=== PATIENT | female | born 1935 | race Caucasian/White ===

== ENCOUNTER 2018-12-15 17:31 | Inpatient (IN) | payer MEDICARE, OTHER ==
[~2018-12-15] VITALS: Ht 162.6 cm; Wt 98.3 kg
[~2018-12-15 17:31] MED LIST: ALBU90OI; ALBU90OI INH; AMLO5 PO; CHOL10002; DULO30 PO; FISH1000; GLUCOSAMINE CH1 EAC3 PO; HYDACE10B PO; HYDCHL50 PO; POTA10T PO
[2018-12-15] MEDS ORDERED: COLOSTRUM500 MG PO (18:01)
[2018-12-15] MEDS ORDERED: ASPI325 PO (18:02)
[2018-12-15] MEDS ORDERED: Coq-10100 MG PO (18:02)
[2018-12-15] MEDS ORDERED: 24HOUR ALLERGY10 MG PO (18:04)
[2018-12-15] MEDS ORDERED: IBUP600 PO (18:04)
[2018-12-15] MEDS ORDERED: MERIBIN5 MG PO (18:05)
[2018-12-15] MEDS ORDERED: Hair, Skin & N1 EACH (18:05)
[2018-12-15 18:09] LABS: BASOPHILS ABSOLUTE AUTO 0.09 K/mm3 (0.00-0.23); BASOPHILS PERCENT AUTO 1 % (0-2); EOSINOPHILS ABSOLUTE AUTO 0.09 K/mm3 (0.00-0.68); EOSINOPHILS PERCENT AUTO 1 % (0-6); Hematocrit 47.8 % (33.0-51.0); Hemoglobin 15.3 g/dL (11.5-16.0); IMMATURE GRAN ABSOLUTE AUTO 0.04 K/mm3 (0.00-0.10); IMMATURE GRAN PERCENT AUTO 0 % (0-1); LYMPHOCYTES ABSOLUTE AUTO 1.22 K/mm3 (0.84-5.20); LYMPHOCYTES PERCENT AUTO 13 % (21-46); MONOCYTES ABSOLUTE AUTO 0.35 K/mm3 (0.16-1.47); MONOCYTES PERCENT AUTO 4 % (4-13); Mean Corpuscular HGB 32.7 pg (26.0-34.0); Mean Corpuscular Volume 102 fL (80-100); NEUTROPHILS ABSOLUTE AUTO 7.97 K/mm3 (1.96-9.15); NEUTROPHILS PERCENT AUTO 82 % (41-73); Platelet Count 238 K/mm3 (150-400); RDW Coefficient Variation 14.3 % (11.7-14.2); RDW Standard Deviation 53.4 fL (35.1-46.3); Red Blood Cell Count 4.68 M/mm3 (3.80-5.20); White Blood Cell Count 9.76 K/mm3 (4.00-11.30)
[2018-12-15 18:26] LABS: Albumin, Blood 3.3 g/dL (3.4-5.0); Albumin/Globulin Ratio 0.9 (0.8-1.8); Bilirubin, Total 0.5 mg/dL (0.1-1.0); Bun/Creatinine Ratio 19.6 (12.0-20.0); Calcium, Blood 8.6 mg/dL (8.5-10.1); Creatinine, Blood 1.07 mg/dL (0.40-1.00); Globulin, Blood 3.7 g/dL (2.2-4.0); Potassium, Blood 3.8 mmol/L (3.5-5.5); Troponin I 0.086 ng/mL (0.000-0.040)
[2018-12-15 20:15] LABS: International Normalized Ratio 1.02; Prothrombin Time Results 10.8 Sec (9.7-11.5)
[2018-12-15] MEDS ORDERED: VITAMIN B122500 MCG PO (20:50)
[2018-12-15] MEDS ORDERED: NAPR500 PO (20:51)
[2018-12-15] MEDS ORDERED: [UNRECOGNIZED DRUG - OTHER] PO (20:52)
[2018-12-15] MEDS ORDERED: Women's Daily1 EACH PO (20:52)
--- NOTE | 2018-12-15 22:30 | NUR ---
ADMIT PT ARRIVES VIA STRETCHER FROM ER ON 6LO VIA OXYMIZER. PT IS A&O X 3 AND REPORTS SHE IS FEELING MUCH BETTER COMPARED TO ARRIVAL, DENIES CHEST PAIN, DOES REPORT SOME LEFT CALF PAIN FOR THE LAST FEW WEEKS. PT IS SPEAKING FULL SENTENCES AND OCCASIONAL PURSED LIP BREATHING NOTED WITH ACTIVITY; PT DOES DESATURATE TO LOW 80'S WITH NORMAL SPEAKING ON OXYMIZER AT 15L. RT CALLED AND CHANGED OVER TO HFNC WITH HUMIDITY AT 15L TO MAINTAIN O2 SATS OF 92% OR GREATER PER ORDER. BP STABLE, ECG SHOWS SR/SA W/ FREQUENT PAC'S AND PVC'S. HEPARIN GTT INITIATED IN THE ER AT 15UNITS/KG/HR AT 23.1ML/HR FOR WT OF 71KG.
--- NOTE | 2018-12-16 02:21 | NUR ---
UPDATE PT REQUESTING TO USE BSC.O2 SATS CURRENTLY 92%. PT EDUCATED ON POTENTIAL OUTCOMES WITH SUSTAINED LOW O2 SATS BUT REMAINS INSISTENT ON BSC USE. PT UP TO COMMODE, O2 SATS TO 88% WITH MINIMAL EXERTION AND MAINTAINED AT 88% WHILE UP, PT STILL ABLE TO SPEAK FULL SENTENCES AND DENIES INCREASED WOB. ONCE RETURNED TO BED, O2 SATS DROPPED FOR A SHORT TIME TO 76% AND RETURNED TO 90% AFTER 10 MINUTE RECOVERY TIME.
--- NOTE | 2018-12-16 04:33 | NUR ---
UPDATE PT SLEEPING AND MOUTH BREATHING. O2 SATS MAINTAINING AT 88%. PT SWITCHED BACK TO NRB AT 15L/MIN. O2 SATS NOW 90-92%. DISCUSSED WITH PT WHO AGREES TO TRY. PRIOR TO GOING TO SLEEP, PT WAS ABLE TO MAINTAIN O2 SATS AT 90%. PLAN ON ASKING FOR PULMONARY CONSULT.
[2018-12-16 05:11] LABS: BASOPHILS ABSOLUTE AUTO 0.09 K/mm3 (0.00-0.23); BASOPHILS PERCENT AUTO 1 % (0-2); EOSINOPHILS ABSOLUTE AUTO 0.11 K/mm3 (0.00-0.68); EOSINOPHILS PERCENT AUTO 1 % (0-6); Hemoglobin 14.3 g/dL (11.5-16.0); IMMATURE GRAN ABSOLUTE AUTO 0.03 K/mm3 (0.00-0.10); IMMATURE GRAN PERCENT AUTO 0 % (0-1); LYMPHOCYTES ABSOLUTE AUTO 2.33 K/mm3 (0.84-5.20); LYMPHOCYTES PERCENT AUTO 24 % (21-46); MONOCYTES ABSOLUTE AUTO 0.65 K/mm3 (0.16-1.47); MONOCYTES PERCENT AUTO 7 % (4-13); Mean Corpuscular HGB 32.7 pg (26.0-34.0); Mean Corpuscular HGB Conc 32.5 g/dL (31.5-36.5); Mean Corpuscular Volume 101 fL (80-100); Mean Platelet Volume 10.2 fL (9.1-12.4); NEUTROPHILS ABSOLUTE AUTO 6.33 K/mm3 (1.96-9.15); NEUTROPHILS PERCENT AUTO 66 % (41-73); Platelet Count 218 K/mm3 (150-400); RDW Coefficient Variation 14.1 % (11.7-14.2); RDW Standard Deviation 52.1 fL (35.1-46.3); Red Blood Cell Count 4.37 M/mm3 (3.80-5.20); White Blood Cell Count 9.54 K/mm3 (4.00-11.30)
[2018-12-16 05:42] LABS: Albumin, Blood 3.1 g/dL (3.4-5.0); Albumin/Globulin Ratio 0.9 (0.8-1.8); Bilirubin, Total 0.7 mg/dL (0.1-1.0); Bun/Creatinine Ratio 17.4 (12.0-20.0); Calcium, Blood 8.8 mg/dL (8.5-10.1); Creatinine, Blood 1.09 mg/dL (0.40-1.00); Globulin, Blood 3.3 g/dL (2.2-4.0); Potassium, Blood 4.1 mmol/L (3.5-5.5); Total Protein, Blood 6.4 g/dL (6.4-8.2)
--- NOTE | 2018-12-16 06:19 | NUR ---
SHIFT SUMMARY PT REMAINS A&O, REQUIRING HIGH FLOW O2 AT 15L/NRB. PT ABLE TO MAINTAIN O2 SATS 90 OR GREATER WITH NRB BUT ONLY AT REST. WITH ANY ACTIVITY, O2 SATS RANGE FROM 70-80%. PT TOLERATING LOW O2 SATS WHEN UP TO BSC AND REPORTS SHE ONLY FEELS SLIGHTLY SHORT OF BREATH AND SHOWS NO EVIDENCE OF INCREASED WORK OF BREATHING OR ACCESSORY MUSCLE USE. CALL AT 0530 TO UPDATE PHARMACY FOR MOST RECENT PTT, NO DOSE ADJUST OF THIS WRITING AND HOLD/ACKNOWLEDGE PLACED ON HEPARIN; REMAINS AT 15UNITS/KG/HR. BP STALBE, ECG REMAINS SR/SA WITH PAC'S AND PVS'S. O2 SATS AT REST >90%.
--- NOTE | 2018-12-16 07:50 | NUR ---
ASSUMED CARE: REPORT RECEIVED FROM DENISSE Charles RN. ASSUMED CARE OF THIS PT AT APPROX 0700. UPON ASSESSMENT, PT IS RESTING COMFORTABLY & DENIES PAIN. STS SOB IS "GETTING BETTER," PT CURRENTLY ON 15L NRB TO MAINTAIN O2 SATS APPROX 90%. TUMBLERS SUPERVISOR IN ROOM TO COMPLETE BLE & LUE ULTRASOUND. WILL CONTINUE TO MONITOR & UPDATE NEEDED.
--- NOTE | 2018-12-16 09:13 | NUR ---
DR. DAVIS: PROVIDER IN UNIT, DISCUSSED POC PRIOR TO HIM SEEING PT. BECAUSE THE PT IS HEMODYNAMICALLY STABLE AT THIS TIME, CONTINUED USE OF HEPARIN & ALLOWING THE PT TIME TO RECOVER IS BEST POC. CONCERN FOR PROPER NUTRITION PT IS REQUIRING HIGH AMNTS OF O2, WILL START CLEAR LIQUID DIET PER PROVIDER & CONTINUE TOLERATED BY PT. ALSO OKAY TO PLACE BENSON IF PT CONTINUES TO DESAT WHEN GETTING TO BSC. PROVIDER IN ROOM TO SEE PT, THIS PLAN IS DISCUSSED W/ THE PT & PT's VISITOR AT BEDSIDE WHO VERBALIZE UNDERSTANDING.
--- NOTE | 2018-12-16 15:58 | NUR ---
Patient was lying in bed and alert when I entered patient's room. I introduced myself and explained what what department I was from and patient invited me to have a seat. I established therapeutic alliance, conducted a informal spiritual needs assessment and explored patient's belief system. Patient expressed some fears about her current medical issues and the fact that her only family member living in town is moving away this weekend. I reinforced patient's helpful attitudes and practices, offered emotional support and companionship, provided pastoral disability counselor and provided prayer. Patient responded well to all interventions and showed signs of restored leia and reduced stress. Patient voiced her gratitude for the visit.
--- NOTE | 2018-12-16 18:15 | NUR ---
SHIFT SUMMARY: PT REMAINS A&O, PLEASANT & COOPERATIVE W/ CARE. FAMILY HAS BEEN IN ROOM INTERMITTENTLY T/O THIS SHIFT & THEY ARE SUPPORTIVE W/ CARE. THE PT HAS TOLERATED A SBA TO [facility] [place] NEEDING TO VOID. DURING THIS TIME HER O2 SATS HAVE DROPPED LOW 79%. SHE RECOVERS WITHIN APPROX 5 MINUTES OF REST. LS REMAIN DIM IN BASES, PT TOLERATING 15L HI-FLOW NC T/O SHIFT W/ O2 SATS 90% ON AVG. SA W/ PACs & PVCs NOTED ON MONITOR, HR VARIABLE BETWEEN 50-80 BPM. PT HAS C/O NAUSEA x1, MEDS PER EMAR. SHE HAS TOLERATED MIN AMNTS OF PO INTAKE SINCE THAT TIME. SHE VOIDS W/O DIFFICULTY, BUT DID HAVE C/O "BURNING" W/ URINATION THIS EVENING. NO UA HAS BEEN COMPLETED SINCE ADMIT. HEPARIN CONTINUES INFUSING PER PHARMACY MANAGEMENT. WILL CONTINUE TO MONITOR & REPORT OFF TO ONCOMING RN.
[2018-12-16 22:24] LABS: Source, Urine Clean Catch
[2018-12-16 22:40] LABS: Appearance, Urine Cloudy (Clear); Bilirubin, Urine Neg (Neg); Blood, Urine 1+ (Neg); Color, Urine Yellow (P-Yellow); Glucose Qualitative, Urine Neg (Neg); Ketones, Urine Neg (Neg); Leukocyte Esterase, Urine 3+ (Neg); Nitrite, Urine Neg (Neg); Protein, Urine 2+ (Neg); Specific Gravity, Urine 1.015 (1.003-1.022); Urobilinogen, Urine 1+ (Normal); White Blood Cells, Urine TNTC /hpf (0-5); pH, Urine 6.5 (5.0-8.0)
[2018-12-16 22:41] LABS: Bacteria Many /hpf; Red Blood Cells, Urine Rare /hpf (0-2); Squamous Epithelial Cells Few /hpf (Few)
--- NOTE | 2018-12-16 23:08 | NUR ---
PHARMACY aPTT: SPOKE WITH RACHEL IN [employer], STATED TO KEEP HEPARIN RATE THE SAME (18u/26.5 mL/hr).
--- NOTE | 2018-12-17 02:37 | NUR ---
PT RESTING QUIETLY. PT SNORING. VSS
--- NOTE | 2018-12-17 05:06 | NUR ---
PROGRESSING PROLONGING Q-T. PT WITH BRADYCARDIA IN THE 40'S BRIEFLY (SEE RHYTHM STRIP). INHALATION THERAPIST INFORMED.
--- NOTE | 2018-12-17 08:38 | NUR ---
ASSUMED CARE: REPORT RECEIVED FROM CECY Alvarenga RN. ASSUMED CARE OF THIS PT AT APPROX 0700. ON ASSESSMENT, THE PT IS RESTING QUIETLY. SHE AWAKENS EASILY TO VERBAL STIMULI & DENIES PAIN THIS MORNING. SHE STS THAT SHE IS "STILL VERY SLEEPY" & WOULD LIKE TO REST AWHILE LONGER BEFORE ATTEMPTING TO EAT BREAKFAST. O2 SATS REMAIN > 90% ON 15L HI-FLOW NC, PT STS FEELING SOB IS IMPROVED. WILL CONTINUE TO MONITOR & UPDATE NEEDED.
--- NOTE | 2018-12-17 08:50 | NUR ---
DR. DAVIS: PROVIDER IN ROOM TO SEE PT, UPDATED ON PT's STATUS T/O RUG CLEANER HELPER & THIS MORNING. HE STS OKAY TO ADVANCE DIET TOLERATED & DISCUSSES POC W/ PT. CONTINUE SUPPORTIVE CARE W/ HEPARIN & O2, TITRATE O2 DOWN SHY W/ GOAL OF SATS 92-95% & HEPARIN MANAGEMENT PER PHARMACY. WILL CONTINUE TO MONITOR & UPDATE NEEDED.
--- NOTE | 2018-12-17 19:29 | NUR ---
SHIFT SUMMARY: PT REMAINS A&O, PLEASANT & COOPERATIVE W/ CARE. SHE REPORTS THAT SOB IS IMPROVING & O2 HAS BEEN TITRATED DOWN TO 8L HI-FLOW NC W/ O2 SATS > 92%. SR W/ OCCASIONAL PACs & PVCs, AVG HR 80s. BT x4, NAUSEA x1 THIS SHIFT W/ MEDS PER EMAR. PT VOIDS W/O DIFFICULTY, SBA TO BSC. HEPARIN CONTINUES PER PHARMACY MANAGEMENT. WILL CONTINUE TO MONITOR & REPORT OFF OT ONCOMING RN.
--- NOTE | 2018-12-17 21:50 | NUR ---
ASSUMED CARE OF PT FROM SUSANNE SORTO. PT PRESENTS IN BED. ALERT AND ORIENTED. PLEASANT AND COOPERATIVE WITH CARE AND ASSESSMENT. NO APPARENT DISTRESS NOTED. PT DOES STATE THAT SHE HAS MILD PAIN IN RIGHT LOWER ABDOMEN ATTRIBUTED TO GAS. PT HAS HAD BOWEL MOVEMENT THIS DAY. PT MAINTAINS > 90 PERCENT SATURATIONS WITH SUPPLEMENTAL OXYGEN THERAPY. WILL REVIEW CHART AND PLAN OF CARE FOR THIS PT.
--- NOTE | 2018-12-18 01:00 | NUR ---
PT HAS BEEN ABLE TO GET UP TO BEDSIDE COMMODE SEVERAL TIMES THIS SHIFT TO VOID. HAS SMALL BM THIS NIGHT. PT CONTINUES ON 8 LITERS OXYGEN PER NASAL CANNULA. WILL CONTINUE TO MONITOR.
[2018-12-18 05:30] LABS: BASOPHILS ABSOLUTE AUTO 0.05 K/mm3 (0.00-0.23); BASOPHILS PERCENT AUTO 0 % (0-2); EOSINOPHILS ABSOLUTE AUTO 0.08 K/mm3 (0.00-0.68); EOSINOPHILS PERCENT AUTO 1 % (0-6); Hematocrit 45.4 % (33.0-51.0); Hemoglobin 14.4 g/dL (11.5-16.0); IMMATURE GRAN ABSOLUTE AUTO 0.07 K/mm3 (0.00-0.10); IMMATURE GRAN PERCENT AUTO 1 % (0-1); LYMPHOCYTES ABSOLUTE AUTO 1.49 K/mm3 (0.84-5.20); LYMPHOCYTES PERCENT AUTO 10 % (21-46); MONOCYTES PERCENT AUTO 6 % (4-13); Mean Corpuscular HGB 32.7 pg (26.0-34.0); Mean Corpuscular HGB Conc 31.7 g/dL (31.5-36.5); Mean Corpuscular Volume 103 fL (80-100); Mean Platelet Volume 10.1 fL (9.1-12.4); NEUTROPHILS ABSOLUTE AUTO 11.69 K/mm3 (1.96-9.15); NEUTROPHILS PERCENT AUTO 82 % (41-73); Platelet Count 252 K/mm3 (150-400); RDW Coefficient Variation 13.9 % (11.7-14.2); White Blood Cell Count 14.28 K/mm3 (4.00-11.30)
[2018-12-18 05:56] LABS: Bun/Creatinine Ratio 13.3 (12.0-20.0); Calcium, Blood 8.5 mg/dL (8.5-10.1); Creatinine, Blood 1.05 mg/dL (0.40-1.00); Potassium, Blood 3.7 mmol/L (3.5-5.5)
--- NOTE | 2018-12-18 07:01 | NUR ---
PT HAS BEEN ABLE TO REST THIS NIGHT EXCEPT FOR SEVERAL TIMES UP TO BEDSIDE COMMODE. DOES NOT HAVE DESATURATIONS THIS NIGHT WITH EXERTION WHILE ON 8 L/M OXYGEN. PT ALSO ABLE TO HOLD CONVERSATION WITHOUT DYSPNEA OR DESATURATIONS. NO COMPLAINTS OF CHEST PAIN OR PRESSURE RELATED TO PE'S. PT CONTINUES ON HEPARIN DRIP AT THIS TIME. NO S/S BLEEDING TO NOTE. WILL CONTINUE TO MONITOR PT, AND WILL REPORT OFF TO ONCOMING RN.
--- NOTE | 2018-12-18 09:15 | NUR ---
ASSUMED CARE: REPORT RECEIVED FROM COREY Laguna RN. ASSUMED CARE OF THIS PT AT APPROX 0700. ON ASSESSMENT, PT IS RESTING QUIETLY. SHE STS SOME GENERALIZED JOINT PAIN R/T ARTHRITIS & SOME LLQ PAIN, LIKELY R/T CONSTIPATION. PT WAS SUCCESSFUL IN HAVING BM AFTER BOWEL CARE MEDS PER EMAR YESTERDAY. O2 IS AT 8L VIA HI-FLOW NC THIS MORNING & HAS BEEN TITRATED DOWN TO 5L NC. SHE STS SOB IS IMPROVING BUT IS STILL FEELING QUITE FATIGUED. WILL CONTINUE TO MONITOR & UPDATE NEEDED.
--- NOTE | 2018-12-18 09:20 | NUR ---
DR. DAVIS: PROVIDER IN ROOM TO SEE PT. +UTI & UA CULTURES DISCUSSED W/ PROVIDER, THE PT HAS ALSO MADE HIM AWARE OF HER LLQ PAIN. DR. DAVIS STS HE WILL LOOK INTO THE URINE CX & PLACE ORDERS PRN. IT IS ALSO DISCUSSED THAT THE PT MAY BE ABLE TO TRANSITION TO PO BLOOD THINNERS TODAY. WILL CONTINUE TO MONITOR & UPDATE NEEDED.
--- NOTE | 2018-12-18 17:59 | NUR ---
Initial Visit: Palliative Care Consult for AD/POLST and advance care planning. Pt is A&O and denies pain at this time. Pt is pleasant and denies anxiety. She states her breathing has improved and her oxygen needs have also improved. Engaged in therapeutic conversation about golas of care. Pt reports she is of Rastafarian leia and received a visit from a telegraph operator a couple of days ago. She denies need for continued visits. Pt lives at home alone and reports her more than 20 years ago. Pt has hired caregivers that assists with cleaning and shopping and states they have become friends. Pt also has a daughter who is also supportive. Discussed AD/POLST with Pt and she reports having a completed advanced directive at home. Instructed Pt when possible to have friend or family bring to hospital for copy to medical records. Pt reports PT/OT are recommending rehabilitaion and is agreeable to recommendations. Pt reports no other concerns at this time. Will remain available
--- NOTE | 2018-12-18 18:31 | NUR ---
SHIFT SUMMARY: PT A&O, PLEASANT & COOPERATIVE THIS SHIFT. SHE STS IMPROVED SOB BUT IS FEELING GENERALLY FATIGUED. MEDS PER EMAR FOR C/O CHRONIC JOINT PAIN. SBA FOR TX. PT REMAINS ON 5L HI-FLOW NC W/ O2 SATS > 92%, DESATS TO APPROX 89% W/ EXERTION, BUT RECOVERS WITHIN 1-2 MINUTES AT REST. MONITOR SHOWS SR W/ OCCASIONAL PAC's & PVC's. SHE HAS NO C/O NAUSEA THIS SHIFT & IS TOLERATING PO INTAKE WELL. VOIDING W/O DIFFICULTY, ABX STARTED FOR UTI TODAY. DELIARELTO STARTED & PT GIVEN INFORMATIONAL PACKET REGARDING NEW MED. WILL CONTINUE TO MONITOR & REPORT OFF TO ONCOMING RN.
--- NOTE | 2018-12-19 05:32 | NUR ---
SHIFT SUMMARY: PT PLEASANT WITH NO COMPLAINTS T/O SHIFT. PT A+O. VSS. PT UP TO BSC WHEN NEEDED AND WITH PROPER USE OF CALL LIGHT FOR ASSIST. CALLED HOSPITALIST FOR CHANGE OF STATUS SINCE IV HEPARIN STOPPED DAY SHIFT 12/18/18. HOSPIATLIST STATED THAT SHOULD WAIT UNTIL MORNING. PT SLEEPING WELL. CALL LIGHT IN HAND. VSS.
--- NOTE | 2018-12-19 07:38 | NUR ---
ASSUMED CARE: PT RESTING QUIETLY AT THIS TIME. NO ACUTE NEEDS OR CONCERNS IDENTIFIED
--- NOTE | 2018-12-19 16:14 | NUR ---
Mrs. Xavier expressed gratitude for her recovery. She admits to feeling "a bit" frustrated with her lack of energy, but she is hopeful this will improve. She lives alone, but has loving, supportive friends. Her dtr lives in [place] and they are in contact daily. Mrs. Xavier has a positive attitude and a heart of gratitude. She expresses a deep leia in a God that loves her. She was very appreciaitive of prayer and spiritual support. I will remain available.
--- NOTE | 2018-12-19 16:25 | NUR ---
REPORT CALLED TO CAMILLE SKINNER. PT TRANSFERRED VIA WHEEL CHAIR TO ROOM 232. NO ACUTE CHANGES OR CONCERNS NOTED
--- NOTE | 2018-12-19 16:30 | NUR ---
PT ARRIVED TO UNIT FROM ICU AT APROX 1620 VIA WC. PT SBA TO CHAIR. LUNGS DIM IN BASES, O2 SAT 94% ON 5L HIGH FLOW O2 NC. HAS INCREASED SOB W/EXCERTION BUT RECOVERS EASILY.
--- NOTE | 2018-12-20 04:51 | NUR ---
SUMMARY: NO ACUTE CHANGE. ABLE TO WEAN O2 TO 3L THIS AM, SPO2 94%. PT SOB ON EXERTION. GETTING UP TO COMMODE WITH SBA. DENIES SOB AT REST. PT VSS, NO SAFETY CONCERNS.
[2018-12-20 06:01] LABS: BASOPHILS ABSOLUTE AUTO 0.06 K/mm3 (0.00-0.23); BASOPHILS PERCENT AUTO 1 % (0-2); EOSINOPHILS ABSOLUTE AUTO 0.39 K/mm3 (0.00-0.68); EOSINOPHILS PERCENT AUTO 5 % (0-6); Hemoglobin 12.9 g/dL (11.5-16.0); IMMATURE GRAN ABSOLUTE AUTO 0.03 K/mm3 (0.00-0.10); IMMATURE GRAN PERCENT AUTO 0 % (0-1); LYMPHOCYTES ABSOLUTE AUTO 1.23 K/mm3 (0.84-5.20); LYMPHOCYTES PERCENT AUTO 15 % (21-46); MONOCYTES ABSOLUTE AUTO 0.64 K/mm3 (0.16-1.47); MONOCYTES PERCENT AUTO 8 % (4-13); Mean Corpuscular HGB 32.8 pg (26.0-34.0); Mean Corpuscular HGB Conc 31.5 g/dL (31.5-36.5); Mean Corpuscular Volume 104 fL (80-100); Mean Platelet Volume 10.3 fL (9.1-12.4); NEUTROPHILS ABSOLUTE AUTO 6.08 K/mm3 (1.96-9.15); NEUTROPHILS PERCENT AUTO 72 % (41-73); Platelet Count 205 K/mm3 (150-400); RDW Coefficient Variation 13.6 % (11.7-14.2); RDW Standard Deviation 52.7 fL (35.1-46.3); Red Blood Cell Count 3.93 M/mm3 (3.80-5.20); White Blood Cell Count 8.43 K/mm3 (4.00-11.30)
[2018-12-20 06:13] LABS: Bun/Creatinine Ratio 15.3 (12.0-20.0); Calcium, Blood 7.9 mg/dL (8.5-10.1); Creatinine, Blood 0.98 mg/dL (0.40-1.00); Potassium, Blood 3.9 mmol/L (3.5-5.5)
--- NOTE | 2018-12-20 10:20 | NUR ---
Enedelia has given me verbal permission to provide care for her on 11-20-18
--- NOTE | 2018-12-20 15:00 | NUR ---
This student nurse was given permission by the patient to access their medical records.
--- NOTE | 2018-12-20 17:54 | NUR ---
SHIFT SUMMARY PT HAS DONE WELL THIS SHIFT. O2 DOWN TO 3L VIA NC, PT HAS DENIED INCREASED WORK OF BREATHING WITH EXCERTION-AMBULATED TO HALLWAY MULTIPLE TIMES THIS SHIFT WITH ASSISTANCE. UP TO CHAIR ENTIRE SHIFT. MEDICATED WITH ULTRAM ONCE FOR ARTHRITIS PAIN IN JOINTS. PLAN IS TO CONTINUE TO TITRATE O2 DOWN TO RA PT IS ABLE TO TOLERATE.
--- NOTE | 2018-12-21 07:34 | NUR ---
SHIFT SUMMARY PT A7O X4 T/O SHIFT. DIM IN LUNGS; CONT OXIMETRY IN PLACE, SATS GREATER THAN 90%; 3L O2 VIA NC. PT UP WITH FWW AND SBA INTO SAM AND BACK TO BED, TOLERATING WELL. CALL LIGHT IN REACH. PT DEMONSTRATES USE. REPORT GIVEN TO DAY SHIFT RN; PT DECLINED TO BE WOKE FOR BED SIDE REPORT.
--- NOTE | 2018-12-21 16:53 | NUR ---
SHIFT SUMMARY NO ACUTE CHANGES THIS SHIFT. PT WEANED TO 2.5L VIA NC AND SATTING BETWEEN 90-92%. LUNGS SOUNDS ARE CLEAR BUT DIMINISHED T/O BASES. PT AMBULATING HALLWAY TODAY WITH WALKER SBA AND SHY WELL. PLAN IS TO CONT TO WEAN OFF O2 TOLERATED AND THEN DC HOME WITH HOME HEALTH. CALL LIGHT WITHIN REACH.
--- NOTE | 2018-12-22 05:03 | NUR ---
PT VSS T/O NIGHT. SATS >90% ON 2.5L O2 NC, AVG 91-93% WHILE SLEEPING. PT DOES REP LESS SOB W/EXERTION, DENIES SOB AT REST. TRAMADOL GIVEN FOR L KNEE PAIN X1 W/REP RELIEF. PT AMB W/FWW+SBA IN ROOM. PT IS USING CALL LIGHT FOR ASSISTANCE, WILL CONT TO MONITOR UNTIL REP GIVEN TO ONCOMING RN.
--- NOTE | 2018-12-22 18:15 | NUR ---
SUMMARY PT HAD DIFFICULTY W/CONSTIPATION. MEDICATED PER ORDERS W/SUPPOSITORY AND THEN ENEMA. PT FINALLY HAD LARGE BM. NOW RESTING IN BED. MEDICATED ONCE DURING SHIFT FOR KNEE PAIN. WORKED W/THERAPY. USES CALL LIGHT APPROPRIATELY.
[2018-12-23 04:39] LABS: Hematocrit 43.3 % (33.0-51.0); Hemoglobin 13.7 g/dL (11.5-16.0); Mean Corpuscular HGB 32.5 pg (26.0-34.0); Mean Corpuscular HGB Conc 31.6 g/dL (31.5-36.5); Mean Corpuscular Volume 103 fL (80-100); Mean Platelet Volume 9.8 fL (9.1-12.4); Platelet Count 287 K/mm3 (150-400); RDW Coefficient Variation 13.3 % (11.7-14.2); RDW Standard Deviation 50.8 fL (35.1-46.3); Red Blood Cell Count 4.21 M/mm3 (3.80-5.20); White Blood Cell Count 8.09 K/mm3 (4.00-11.30)
[2018-12-23 04:57] LABS: Albumin, Blood 2.6 g/dL (3.4-5.0); Anion Gap 7 mmol/L (6-16); Blood Urea Nitrogen 12 mg/dL (8-24); Bun/Creatinine Ratio 13.1 (12.0-20.0); CO2, Blood 33 mmol/L (21-32); Calcium, Blood 8.4 mg/dL (8.5-10.1); Chloride, Blood 103 mmol/L (98-108); Creatinine, Blood 0.92 mg/dL (0.40-1.00); Glomerular Filtration Rate >60 (60-); Glucose, Blood 88 mg/dL (70-99); Phosphorus, Blood 3.3 mg/dL (2.5-4.9); Potassium, Blood 3.8 mmol/L (3.5-5.5); Sodium, Blood 143 mmol/L (136-145)
--- NOTE | 2018-12-23 06:36 | NUR ---
PT O2 INC TO 2L NC WHILE SLEEPING. SATS DROPPED 88-89% ON 1.5L WHILE SLEEPING, 92-93% ON 2L. PT REP NO SIG CHANGE IN WOB. PT UP IN ROOM W/FWW+SBA. OT DENIED PAIN T/O NIGHT. IS USING CALL LIGHT FOR ASSISTANCE, WILL CONT TO MONITOR UNTIL REP GIVEN TO ONCOMING RN.
[2018-12-23] MEDS ORDERED: ACET325 PO (12:39)
[2018-12-23] MEDS ORDERED: HYDCHL25 PO (12:39)
[2018-12-23] MEDS ORDERED: AMOX250 PO (12:42)
[2018-12-23] MEDS ORDERED: DOCU100 PO (12:43)
[2018-12-23] MEDS ORDERED: XARELTO15 MG PO (12:54)
--- NOTE | 2018-12-23 16:40 | NUR ---
POWERGLIDE TO RIGHT UPPER ARM DC'D INTACT
--- NOTE | 2018-12-23 16:41 | NUR ---
DISCHARGE INSTRUCTIONS REVIEWED WITH PATIENT AND QUESTIONS ANSWERED. DISCHARGE MEDS PHONED TO [facility]. ROGERS FROM [facility] HERE AND DELIVERED PORTABLE OXYGEN TANK AND INSTRUCTED PATIENT IN ITS USE. PATIENT IS WAITING FOR HER DAUGHTER TO ARRIVE WHO WILL PROVIDE TRANSPORT TO HOME
--- NOTE | 2018-12-23 17:53 | NUR ---
1715 PATIENT DISCHARGED VIA WHEELCHAIR TO HOME WITH HER DAUGHTER
== END 2018-12-23 16:00 | disposition home or self-care (01) | DRG 175 ==
LOC: ER 17:31 → SURS 20:20 → ICUW 20:20 → SURS 12-19 16:24
PROVIDERS: Emergency Medicine; Internal Medicine; Nurse Practitioner Acute Care; ADMIT Hospitalist
DX: I26.99 Other pulmonary embolism without acute cor pulmonale (principal); J96.01 Acute respiratory failure with hypoxia; N39.0 Urinary tract infection, site not specified; I73.9 Peripheral vascular disease, unspecified; K64.4 Residual hemorrhoidal skin tags; K64.8 Other hemorrhoids; M19.90 Unspecified osteoarthritis, unspecified site; Z87.891 Personal history of nicotine dependence; G89.29 Other chronic pain; I10 Essential (primary) hypertension; R53.81 Other malaise; K59.00 Constipation, unspecified; B96.4 Proteus (mirabilis) (morganii) as the cause of diseases classified elsewhere
CPT/HCPCS: 36415; 71045; 71260; 80048; 80053; 80069; 81001; 83880; 84484; 85025; 85027; 85610; 85730; 87077; 87086; 87186; 93005; 93010; 93970; 93971; 94761; 94762; 96365-59; 97110; 97116; 97162; 97166; 97530; 97535; 99285-25; C1751; J1644; J2405; Q9967

== ENCOUNTER → 2019-01-06 | Outpatient (CLI) | payer MEDICARE, OTHER ==
[~2019-01-06] MED LIST changes: +24HOUR ALLERGY10 MG PO; +ACET325 PO; +AMOX250 PO; +ASPI325 PO; +COLOSTRUM500 MG PO; +Coq-10100 MG PO; +DOCU100 PO; +HYDCHL25 PO; +Hair, Skin & N1 EACH; +IBUP600 PO; +MERIBIN5 MG PO; +NAPR500 PO; +VITAMIN B122500 MCG PO; +Women's Daily1 EACH PO; +XARELTO15 MG PO; +[UNRECOGNIZED DRUG - OTHER] PO
[2019-01-06 17:07] LABS: Bilirubin, Urine Neg (Neg); Blood, Urine Neg (Neg); Glucose Qualitative, Urine Neg (Neg); Ketones, Urine 1+ (Neg); Leukocyte Esterase, Urine 1+ (Neg); Nitrite, Urine Neg (Neg); Protein, Urine 1+ (Neg); Urobilinogen, Urine NORM (Normal)
[2019-01-06 17:33] LABS: Appearance, Urine Hazy (Clear); Color, Urine Yellow (P-Yellow)
[2019-01-06 17:35] LABS: Bacteria Many /hpf; Hyaline Casts 0-2 /lpf (0-2); Red Blood Cells, Urine 0-2 /hpf (0-2); Squamous Epithelial Cells Many /hpf (Few)
== END | disposition home or self-care (01) ==
LOC: LAB HH 16:32
PROVIDERS: Internal Medicine
DX: N39.0 Urinary tract infection, site not specified (principal)
CPT/HCPCS: 81001; 87077; 87086; 87186

== ENCOUNTER 2020-11-29 13:32 | Emergency (ER) | payer MEDICARE, OTHER ==
[~2020-11-29] VITALS: Ht 157.5 cm; Wt 91.6 kg
[~2020-11-29 13:32] MED LIST changes: -ACET325 PO; -AMLO5 PO; -DOCU100 PO; -DULO30 PO; +DULO60 PO; -HYDCHL25 PO; -VITAMIN B122500 MCG PO; -Women's Daily1 EACH PO
[2020-11-29] MEDS ORDERED: OXYC5 PO (15:32)
[2020-11-29] MEDS ORDERED: POTA10T PO (21:08)
[2020-11-29] MEDS ORDERED: Vitamin B12 PO (21:19)
[2020-11-29] MEDS ORDERED: DOCU100 PO (21:20)
[2020-11-29] MEDS ORDERED: MULTI-VITAMIN1 EAC2 PO (21:24)
[2020-11-29] MEDS ORDERED: ALLEGRA ALLERGY60 MG PO (21:25)
[2020-11-29] MEDS ORDERED: TUMS500 MG PO (21:26)
[2020-11-30] MEDS ORDERED: NAPR500 PO (12:54)
== END 2020-11-29 16:02 | disposition home or self-care (01) ==
LOC: ER 13:32
DX: S82.852A Displaced trimalleolar fracture of left lower leg, initial encounter for closed fracture (principal); Z88.2 Allergy status to sulfonamides; Z88.8 Allergy status to other drugs, medicaments and biological substances; Z87.891 Personal history of nicotine dependence; Z91.09 Other allergy status, other than to drugs and biological substances; Z88.5 Allergy status to narcotic agent; Z88.1 Allergy status to other antibiotic agents; W01.0XXA Fall on same level from slipping, tripping and stumbling without subsequent striking against object, initial encounter
CPT/HCPCS: 27818; 29515; 36415; 73610; 96374-59; 96375-59; 96376-59; 99152; 99283-25; J2405; J2704; J3010; J7030

== ENCOUNTER 2020-11-29 16:56 | Inpatient (IN) | payer MEDICARE, OTHER ==
[~2020-11-29] VITALS: Ht 162.6 cm; Wt 93.2 kg
[~2020-11-29 16:56] MED LIST changes: +OXYC5 PO
[2020-11-29] MEDS ORDERED: POTA10T PO (21:08)
[2020-11-29] MEDS ORDERED: Vitamin B12 PO (21:19)
[2020-11-29] MEDS ORDERED: DOCU100 PO (21:20)
[2020-11-29] MEDS ORDERED: MULTI-VITAMIN1 EAC2 PO (21:24)
[2020-11-29] MEDS ORDERED: ALLEGRA ALLERGY60 MG PO (21:25)
[2020-11-29] MEDS ORDERED: TUMS500 MG PO (21:26)
[2020-11-30 04:26] LABS: BASOPHILS ABSOLUTE AUTO 0.06 K/mm3 (0.00-0.23); BASOPHILS PERCENT AUTO 1 % (0-2); EOSINOPHILS ABSOLUTE AUTO 0.08 K/mm3 (0.00-0.68); EOSINOPHILS PERCENT AUTO 1 % (0-6); Hematocrit 40.2 % (33.0-51.0); Hemoglobin 12.6 g/dL (11.5-16.0); IMMATURE GRAN ABSOLUTE AUTO 0.03 K/mm3 (0.00-0.10); IMMATURE GRAN PERCENT AUTO 0 % (0-1); LYMPHOCYTES ABSOLUTE AUTO 1.25 K/mm3 (0.84-5.20); LYMPHOCYTES PERCENT AUTO 14 % (21-46); MONOCYTES ABSOLUTE AUTO 0.84 K/mm3 (0.16-1.47); MONOCYTES PERCENT AUTO 9 % (4-13); Mean Corpuscular HGB 32.3 pg (26.0-34.0); Mean Corpuscular HGB Conc 31.3 g/dL (31.5-36.5); Mean Corpuscular Volume 103 fL (80-100); Mean Platelet Volume 9.7 fL (9.1-12.4); NEUTROPHILS ABSOLUTE AUTO 6.67 K/mm3 (1.96-9.15); NEUTROPHILS PERCENT AUTO 75 % (41-73); Platelet Count 254 K/mm3 (150-400); RDW Coefficient Variation 14.3 % (11.7-14.2); RDW Standard Deviation 54.2 fL (35.1-46.3); White Blood Cell Count 8.93 K/mm3 (4.00-11.30)
[2020-11-30 04:46] LABS: Albumin, Blood 2.8 g/dL (3.4-5.0); Anion Gap 5 mmol/L (6-16); Blood Urea Nitrogen 22 mg/dL (8-24); Bun/Creatinine Ratio 21.8 (12.0-20.0); CO2, Blood 29 mmol/L (21-32); Calcium, Blood 8.6 mg/dL (8.5-10.1); Chloride, Blood 108 mmol/L (98-108); Creatinine, Blood 1.01 mg/dL (0.40-1.00); Glomerular Filtration Rate 55 (60-); Glucose, Blood 102 mg/dL (70-99); Phosphorus, Blood 4.2 mg/dL (2.5-4.9); Potassium, Blood 4.1 mmol/L (3.5-5.5); Sodium, Blood 142 mmol/L (136-145)
--- NOTE | 2020-11-30 09:55 | NUR ---
DR DUTTON AND MARY CANTRELL IN TO SEE PT.
[2020-11-30] MEDS ORDERED: NAPR500 PO (12:54)
--- NOTE | 2020-11-30 17:19 | NUR ---
SUMMARY NO ACUTE CHANGES T/O SHIFT. PT GOT UP W/THERAPY; HAD DIFFICULTY MAINTAINING NWB PRECAUTIONS. PAIN MANAGED PER EMAR. LLE ELEVATED ON PILLOWS. CALL LIGHT IN REACH. RESTING W/EYES CLOSED AT THIS TIME.
--- NOTE | 2020-12-01 05:28 | NUR ---
SHIFT SUMMARY S/P BEDSIDE L ANKLE FX CLOSED REDUCTION, A/O X4, VSS, HAD A LOW GRADE FEVER AT 0400 VITALS, GAVE TYLENOL PER ORDERS. TOLERATING PO, VOIDING ON BEDPAN, PASSING FLATUS, LIKES TO HAVE MORE ASSISTANCE THAN WHAT IS NEEDED, PT IS ABLE TO DO MORE THAN SHE INITIALLY SAYS SHE CAN DO, SAYS SHE NEEDS US TO HELP MOVE HER LEG BUT SHE IS ABLE TO W/ ENCOURAGEMENT FOR REPOSITIONING AND ROLLING ON/OFF BEDPAN, SEEMS TO RESPOND WELL TO THERAPEUTIC COMMUNICATION. PAIN WELL CONTROLLED PER EMAR. CALL LIGHT IN REACH, WILL CONTINUE TO MONITOR AND REPORT TO ONCOMING DAY RN.
--- NOTE | 2020-12-01 17:22 | NUR ---
SUMMARY NO ACUTE CHANGES THIS SHIFT. PT GOT UP TO BSC W/TWO PERSON MAX ASSIST AND THEN SAT IN CHAIR. HAS DIFFICULTY MAINTAINING NONWB STATUS TO LLE. MEDICATED PER ORDERS FOR PAIN T/O SHIFT. CALL LIGHT IN REACH.
--- NOTE | 2020-12-02 06:14 | NUR ---
SHIFT SUMMARY S/P TRIMALEOLAR FX LEFT, A/O X4, VSS, TOLERATING PO, VOIDING WELL, ABLE TO TRANSFER TO BSC W/ 2 PERSON ASSIST BUT HAS DIFFICULTY MAINTAINING NWB ON L SIDE, USES BEDPAN WELL, ASKS FOR HELP MOVING L LEG BUT APPEARS TO BE ABLE TO MOVE IT INDEPENDENTLY W/ ENCOURAGEMENT. PLAN TO DC TO SNF PENDING AVAILABLE PLACEMENT. PAIN WELL CONTROLLED PER EMAR, NO BM THIS SHIFT. CALL LIGHT IN REACH, WILL CONTINUE TO MONITOR AND REPORT TO ONCOMING DAY RN.
--- NOTE | 2020-12-02 08:19 | NUR ---
DR ARNOLD HERE RECENTLY TO SEE PT. REPORTS MAY D/C TELE. SEE ORDERS.
--- NOTE | 2020-12-02 19:00 | NUR ---
SHIFT SUMMARY PT EATING AND DRINKING. PT VOIDING. PT WORKED WITH THERAPY TODAY. PT BEEN ASSISTED WITH ADL'S PRN. PT BEEN UP TO CHAIR. PT REPORTS PASSING GAS. PT USING CALL LIGHT APPR. PT BEEN MED PRN FOR PAIN. PT GIVEN PRUNE JUICE COCKTAIL THIS EVENGING TO HELP WITH BM PER PT REQ.
--- NOTE | 2020-12-03 03:45 | NUR ---
SHIFT SUMMARY: FRACTURED LEFT ANKLE PATIENT IS ALERT AND ORIENTED X4 WHILE AWAKE. SHE HAS BEEN ASLEEP MAJORITY OF THE SHIFT BUT IS EASILY AROUSABLE. VS ARE WNL AND SHE IS ON RA. PAIN IS CONTROLLED WITH 1 NORCO PO. SHE IS VERY [place] SO SPEAKING LOUDLY AND CLEARLY IS JOHNS FOR COMMUNICATION. SHE CALLS APPROPRIATELY. SHE IS NONWEIGHT BEARING ON THE LEFT LEG. SHE USED THE BEDPAN ONCE LAST NIGHT WITH ONLY URINE OUTPUT. URINE WAS YELLOW. HER SPLINT ON THE LEFT LEG IS D/C/I. SHE DENIES NUMBNESS AND TINGLING. SHE IS ABLE TO WIGGLE FINGERS AND TOES. PATIENT CALLS APPROPRIATELY. CALL LIGHT WITHIN REACH. THE PLAN IS FOR POSSIBLE DISCHARGE TO SNF AND TO ENCOURAGE PO FLUID INTAKE.
--- NOTE | 2020-12-03 08:35 | NUR ---
DR ARNOLD HERE TO SEE PT RECENTLY. DISCUSSED PT'S STATUS.
[2020-12-03 11:34] LABS: Influenza A, PCR Negative (NEGATIVE); Influenza B, PCR Negative (NEGATIVE); Resp Syncytial Virus, PCR Negative (NEGATIVE); SARS-Cov-2 (COVID-19) PCR, MMC Negative (NEGATIVE)
--- NOTE | 2020-12-03 14:15 | NUR ---
PT BEEN ATTEMPTING MULT TIMES TO HAVE BM. PT CONT TO NOT BE ABLE TO HAVE BM. PT GIVEN ENEMA WHILE IN BED WITHOUT DIFFICULTY WITH INSOLE DOUBLER IN ROOM. PT TOLERATED WELL. CALL LIGHT IN REACH. DISCUSSED WITH PROTOTYPE ASSEMBLER [employer]LECTRON[employer] D.G..
--- NOTE | 2020-12-03 16:45 | NUR ---
DISCHARGE: PT RECENTLY TO [facility] BY TRANSPORT. PT SENT WITH BELONGINGS AND PAPERWORK. FAMILY/FRIEND HERE TO SEE PT BEFORE SHE LEFT. EQUIPMENT ASSOCIATE ASSISTED WITH DISCHARGE WHO CAME AND TALKED WITH HER BEFORE SHE LEFT. REPORT GIVEN TO STAFF AT [facility] IV OUT WNL, NO OTHER IV'S IN PLACE. PT HAD BM TODAY BEFORE SHE LEFT. SCRIPT WAS IN PAPERWORK.
== END 2020-12-03 16:32 | DRG 563 ==
LOC: ER 16:56 → SURS 16:57
PROVIDERS: Internal Medicine; ADMIT Family Medicine
PROC: 0QSKXZZ Reposition Left Fibula, External Approach (ICD-10-PCS; principal; 2020-11-30)
DX: S82.852A Displaced trimalleolar fracture of left lower leg, initial encounter for closed fracture (principal); W19.XXXA Unspecified fall, initial encounter; E66.9 Obesity, unspecified; F32.9 Major depressive disorder, single episode, unspecified; Z20.822 Contact with and (suspected) exposure to COVID-19; I12.9 Hypertensive chronic kidney disease with stage 1 through stage 4 chronic kidney disease, or unspecified chronic kidney disease; N18.30 Chronic kidney disease, stage 3 unspecified; Z87.891 Personal history of nicotine dependence; Z68.34 Body mass index [BMI] 34.0-34.9, adult; M17.10 Unilateral primary osteoarthritis, unspecified knee; Z96.651 Presence of right artificial knee joint; Z86.711 Personal history of pulmonary embolism; Z66 Do not resuscitate; R54 Age-related physical debility
CPT/HCPCS: 0241U; 27818; 29515; 36415; 73610; 80069; 85025; 96372; 96374; 96374-59; 96375-59; 96376; 96376-59; 97110; 97162; 97166; 97530; 97535; 99152; 99283-25; 99284-25; A9270; G0378; J1650; J2405; J2704; J3010; J7030

== ENCOUNTER 2020-12-13 09:35 | Day surgery (SDC) | payer MEDICARE, OTHER ==
[~2020-12-13] VITALS: Ht 162.6 cm; Wt 91.8 kg
[~2020-12-13 09:35] MED LIST changes: +ALLEGRA ALLERGY60 MG PO; +DOCU100 PO; +MULTI-VITAMIN1 EAC2 PO; +TUMS500 MG PO; +Vitamin B12 PO
--- NOTE | 2020-12-13 10:18 | NUR ---
12/13/20 1018 Aracelis Altamirano V PT 2-PERSON ASSISTED FROM WC TO BED AND THEN ASSISTED WITH CHANGING IN TO GOWN AND THEN ASSISTED WITH USE OF BEDPAN.
--- NOTE | 2020-12-13 11:45 | NUR ---
12/13/20 1145 Thais Hernadez BUPIVACAINE 0.5% 30ML MIXED WITH 0.15CC OF EPI FOR BUPIVACAINE 0.5% W/EPI 1:200,000 BY RN
== END 2020-12-13 14:45 | disposition home or self-care (01) ==
LOC: ORSCSDS 09:35
PROVIDERS: Podiatrist Foot & Ankle Surgery
PROC: 0QSK04Z Reposition Left Fibula with Internal Fixation Device, Open Approach (ICD-10-PCS; principal; 2020-12-13 10:45)
PROC: 0QSH04Z Reposition Left Tibia with Internal Fixation Device, Open Approach (ICD-10-PCS; principal; 2020-12-13 10:45)
DX: S82.852A Displaced trimalleolar fracture of left lower leg, initial encounter for closed fracture (principal); I10 Essential (primary) hypertension; J45.909 Unspecified asthma, uncomplicated; Z87.891 Personal history of nicotine dependence; E78.5 Hyperlipidemia, unspecified; E66.9 Obesity, unspecified; Z68.34 Body mass index [BMI] 34.0-34.9, adult; Z79.899 Other long term (current) drug therapy; Z79.82 Long term (current) use of aspirin
CPT/HCPCS: C1713; C1769; J0171; J0690; J1100; J2405; J2704; J3010

== ENCOUNTER → 2021-04-13 | Outpatient (CLI) | payer MEDICARE, OTHER ==
[~2021-04-13] MED LIST changes: +ACET325 PO; +AMLO10 PO; +Aspir 8181 MG PO; +BISA10S PR; +DOCUZEN 8.6-501 EACH PO; +MECL25 PO; +METO25ER PO; +MIRALAX17 GM PO; +OLAN5 PO; +OLAN5A MM; +OMEP20ER; +ONDA4ODT; +PENVK500 PO; +RECTICARE30 GM TOP; +VITAMIN D31000 UNI1 PO; +[UNRECOGNIZED DRUG - OTHER] BOTHEYES
[2021-04-13 05:52] LABS: Hematocrit 33.6 % (33.0-51.0); Hemoglobin 10.2 g/dL (11.5-16.0); Mean Corpuscular HGB 25.9 pg (26.0-34.0); Mean Corpuscular HGB Conc 30.4 g/dL (31.5-36.5); Mean Corpuscular Volume 85 fL (80-100); Mean Platelet Volume 8.9 fL (9.1-12.4); Platelet Count 633 K/mm3 (150-400); RDW Coefficient Variation 17.4 % (11.7-14.2); RDW Standard Deviation 54.4 fL (35.1-46.3); Red Blood Cell Count 3.94 M/mm3 (3.80-5.20); White Blood Cell Count 8.99 K/mm3 (4.00-11.30)
[2021-04-13 06:10] LABS: Alanine Aminotransfer (ALT/SGP 7 U/L (12-78); Albumin, Blood 1.8 g/dL (3.4-5.0); Albumin/Globulin Ratio 0.4 (0.8-1.8); Alk Phos 58 U/L (50-136); Amylase, Blood 20 U/L (25-115); Anion Gap 6 mmol/L (6-16); Aspartate Aminotrans (AST/SGOT 9 U/L (12-37); Bilirubin, Direct 0.1 mg/dL (0.0-0.3); Bilirubin, Indirect 0.2 mg/dL (0.1-0.7); Bilirubin, Total 0.3 mg/dL (0.1-1.0); Blood Urea Nitrogen 7 mg/dL (8-24); Bun/Creatinine Ratio 8.7 (12.0-20.0); CO2, Blood 29 mmol/L (21-32); Calcium, Blood 8.6 mg/dL (8.5-10.1); Chloride, Blood 104 mmol/L (98-108); Glomerular Filtration Rate >60 (60-); Glucose, Blood 74 mg/dL (70-99); Potassium, Blood 3.3 mmol/L (3.5-5.5); Sodium, Blood 139 mmol/L (136-145); Total Protein, Blood 5.8 g/dL (6.4-8.2)
== END ==
LOC: LAB UVN 05:42 → EDSTATUS 10:46
PROVIDERS: Internal Medicine
DX: R10.9 Unspecified abdominal pain (principal)
CPT/HCPCS: 80048; 80076; 82150; 83690; 85027

== ENCOUNTER → 2021-04-14 | Outpatient (CLI) | payer MEDICARE, OTHER ==
[2021-04-14 17:12] LABS: Source, Urine Clean Catch
[2021-04-14 17:16] LABS: Appearance, Urine Turbid (Clear); Bilirubin, Urine Neg (Neg); Blood, Urine 1+ (Neg); Color, Urine Yellow (P-Yellow); Glucose Qualitative, Urine Neg (Neg); Ketones, Urine 1+ (Neg); Leukocyte Esterase, Urine 1+ (Neg); Nitrite, Urine Neg (Neg); Protein, Urine 1+ (Neg); Urobilinogen, Urine 2+ (Normal)
[2021-04-14 17:18] LABS: BASOPHILS ABSOLUTE AUTO 0.07 K/mm3 (0.00-0.23); BASOPHILS PERCENT AUTO 1 % (0-2); EOSINOPHILS ABSOLUTE AUTO 0.05 K/mm3 (0.00-0.68); EOSINOPHILS PERCENT AUTO 0 % (0-6); Hematocrit 34.6 % (33.0-51.0); Hemoglobin 10.5 g/dL (11.5-16.0); IMMATURE GRAN ABSOLUTE AUTO 0.05 K/mm3 (0.00-0.10); IMMATURE GRAN PERCENT AUTO 0 % (0-1); LYMPHOCYTES ABSOLUTE AUTO 1.26 K/mm3 (0.84-5.20); LYMPHOCYTES PERCENT AUTO 11 % (21-46); MONOCYTES PERCENT AUTO 8 % (4-13); Mean Corpuscular HGB 25.8 pg (26.0-34.0); Mean Corpuscular HGB Conc 30.3 g/dL (31.5-36.5); Mean Corpuscular Volume 85 fL (80-100); Mean Platelet Volume 9.1 fL (9.1-12.4); NEUTROPHILS ABSOLUTE AUTO 9.59 K/mm3 (1.96-9.15); NEUTROPHILS PERCENT AUTO 80 % (41-73); Platelet Count 724 K/mm3 (150-400); RDW Coefficient Variation 17.4 % (11.7-14.2); RDW Standard Deviation 54.4 fL (35.1-46.3); Red Blood Cell Count 4.07 M/mm3 (3.80-5.20); White Blood Cell Count 12.02 K/mm3 (4.00-11.30)
[2021-04-14 17:23] LABS: Amorphous Heavy (0-Heavy)
[2021-04-14 17:24] LABS: Red Blood Cells, Urine 0-2 /hpf (0-2)
[2021-04-14 17:25] LABS: Bacteria Mod /hpf; Squamous Epithelial Cells Few /hpf (Few)
[2021-04-14 17:33] LABS: Anion Gap 7 mmol/L (6-16); Blood Urea Nitrogen 11 mg/dL (8-24); Bun/Creatinine Ratio 12.7 (12.0-20.0); CO2, Blood 28 mmol/L (21-32); Calcium, Blood 8.7 mg/dL (8.5-10.1); Chloride, Blood 104 mmol/L (98-108); Creatinine, Blood 0.87 mg/dL (0.40-1.00); Glomerular Filtration Rate >60 (60-); Glucose, Blood 90 mg/dL (70-99); Potassium, Blood 3.6 mmol/L (3.5-5.5); Sodium, Blood 139 mmol/L (136-145)
== END ==
LOC: EDSTATUS 10:48 → LAB UVN 17:09
PROVIDERS: Internal Medicine
DX: A41.51 Sepsis due to Escherichia coli [E. coli] (principal); N18.30 Chronic kidney disease, stage 3 unspecified
CPT/HCPCS: 80048; 81001; 85025; 87077; 87086; 87186

== ENCOUNTER 2021-04-15 11:29 | Emergency (ER) | payer MEDICARE, OTHER ==
[~2021-04-15] VITALS: Ht 165.1 cm; Wt 73.0 kg
[~2021-04-15 11:29] MED LIST changes: -ACET325 PO; -AMLO10 PO; -Aspir 8181 MG PO; -BISA10S PR; -DOCUZEN 8.6-501 EACH PO; -MECL25 PO; -METO25ER PO; -MIRALAX17 GM PO; -OLAN5 PO; -OLAN5A MM; -OMEP20ER; -ONDA4ODT; -PENVK500 PO; -RECTICARE30 GM TOP; -VITAMIN D31000 UNI1 PO; -[UNRECOGNIZED DRUG - OTHER] BOTHEYES
[2021-04-15] MEDS ORDERED: MIRALAX17 GM PO (11:56)
[2021-04-15] MEDS ORDERED: METO25ER PO (11:57)
[2021-04-15] MEDS ORDERED: OMEP20ER (11:57)
[2021-04-15] MEDS ORDERED: ONDA4ODT (12:00)
[2021-04-15 12:45] LABS: BASOPHILS ABSOLUTE AUTO 0.07 K/mm3 (0.00-0.23); BASOPHILS PERCENT AUTO 1 % (0-2); EOSINOPHILS ABSOLUTE AUTO 0.01 K/mm3 (0.00-0.68); EOSINOPHILS PERCENT AUTO 0 % (0-6); Hematocrit 35.2 % (33.0-51.0); Hemoglobin 10.7 g/dL (11.5-16.0); IMMATURE GRAN ABSOLUTE AUTO 0.09 K/mm3 (0.00-0.10); IMMATURE GRAN PERCENT AUTO 1 % (0-1); LYMPHOCYTES ABSOLUTE AUTO 0.99 K/mm3 (0.84-5.20); LYMPHOCYTES PERCENT AUTO 6 % (21-46); MONOCYTES ABSOLUTE AUTO 1.03 K/mm3 (0.16-1.47); MONOCYTES PERCENT AUTO 7 % (4-13); Mean Corpuscular HGB 25.5 pg (26.0-34.0); Mean Corpuscular HGB Conc 30.4 g/dL (31.5-36.5); Mean Corpuscular Volume 84 fL (80-100); Mean Platelet Volume 9.3 fL (9.1-12.4); NEUTROPHILS ABSOLUTE AUTO 13.21 K/mm3 (1.96-9.15); NEUTROPHILS PERCENT AUTO 86 % (41-73); Platelet Count 794 K/mm3 (150-400); RDW Coefficient Variation 17.2 % (11.7-14.2); RDW Standard Deviation 53.5 fL (35.1-46.3)
[2021-04-15 12:57] LABS: Alanine Aminotransfer (ALT/SGP 8 U/L (12-78); Albumin, Blood 1.9 g/dL (3.4-5.0); Albumin/Globulin Ratio 0.4 (0.8-1.8); Alk Phos 66 U/L (50-136); Anion Gap 6 mmol/L (6-16); Aspartate Aminotrans (AST/SGOT 8 U/L (12-37); Bilirubin, Total 0.8 mg/dL (0.1-1.0); Blood Urea Nitrogen 11 mg/dL (8-24); Bun/Creatinine Ratio 14.6 (12.0-20.0); CO2, Blood 28 mmol/L (21-32); Calcium, Blood 8.9 mg/dL (8.5-10.1); Chloride, Blood 102 mmol/L (98-108); Creatinine, Blood 0.75 mg/dL (0.40-1.00); Globulin, Blood 4.3 g/dL (2.2-4.0); Glomerular Filtration Rate >60 (60-); Glucose, Blood 86 mg/dL (70-99); Potassium, Blood 3.9 mmol/L (3.5-5.5); Sodium, Blood 136 mmol/L (136-145); Total Protein, Blood 6.2 g/dL (6.4-8.2)
[2021-04-15] MEDS ORDERED: OLAN5A MM (16:54)
== END 2021-04-15 20:53 | disposition home or self-care (01) ==
LOC: ER 11:29
PROVIDERS: Emergency Medicine
DX: F03.91 Unspecified dementia, unspecified severity, with behavioral disturbance (principal); I10 Essential (primary) hypertension; Z88.2 Allergy status to sulfonamides; Z88.8 Allergy status to other drugs, medicaments and biological substances; Z91.09 Other allergy status, other than to drugs and biological substances; Z88.5 Allergy status to narcotic agent; Z88.6 Allergy status to analgesic agent; Z79.899 Other long term (current) drug therapy; Z79.82 Long term (current) use of aspirin; Z87.891 Personal history of nicotine dependence
CPT/HCPCS: 36415; 71046; 80053; 83690; 85025; 93005; 93010; 99285-25; A9270

== ENCOUNTER 2021-04-18 11:41 | Inpatient (IN) | payer MEDICARE, OTHER ==
[~2021-04-18] VITALS: Ht 167.6 cm; Wt 72.6 kg
[~2021-04-18 11:41] MED LIST changes: +METO25ER PO; +MIRALAX17 GM PO; +OLAN5A MM; +OMEP20ER; +ONDA4ODT
[2021-04-18 12:19] LABS: BASOPHILS ABSOLUTE AUTO 0.06 K/mm3 (0.00-0.23); BASOPHILS PERCENT AUTO 1 % (0-2); EOSINOPHILS ABSOLUTE AUTO 0.04 K/mm3 (0.00-0.68); EOSINOPHILS PERCENT AUTO 0 % (0-6); Hematocrit 33.1 % (33.0-51.0); Hemoglobin 10.1 g/dL (11.5-16.0); IMMATURE GRAN ABSOLUTE AUTO 0.05 K/mm3 (0.00-0.10); IMMATURE GRAN PERCENT AUTO 0 % (0-1); LYMPHOCYTES ABSOLUTE AUTO 1.05 K/mm3 (0.84-5.20); LYMPHOCYTES PERCENT AUTO 9 % (21-46); MONOCYTES ABSOLUTE AUTO 0.63 K/mm3 (0.16-1.47); MONOCYTES PERCENT AUTO 6 % (4-13); Mean Corpuscular HGB 25.4 pg (26.0-34.0); Mean Corpuscular HGB Conc 30.5 g/dL (31.5-36.5); Mean Corpuscular Volume 83 fL (80-100); Mean Platelet Volume 9.1 fL (9.1-12.4); NEUTROPHILS PERCENT AUTO 84 % (41-73); Platelet Count 797 K/mm3 (150-400); RDW Coefficient Variation 17.1 % (11.7-14.2); RDW Standard Deviation 52.4 fL (35.1-46.3); Red Blood Cell Count 3.97 M/mm3 (3.80-5.20); White Blood Cell Count 11.33 K/mm3 (4.00-11.30)
[2021-04-18 12:30] LABS: Alanine Aminotransfer (ALT/SGP 9 U/L (12-78); Albumin, Blood 1.9 g/dL (3.4-5.0); Albumin/Globulin Ratio 0.4 (0.8-1.8); Alk Phos 60 U/L (50-136); Anion Gap 8 mmol/L (6-16); Aspartate Aminotrans (AST/SGOT 22 U/L (12-37); Bilirubin, Total 0.4 mg/dL (0.1-1.0); Blood Urea Nitrogen 12 mg/dL (8-24); Bun/Creatinine Ratio 15.3 (12.0-20.0); CO2, Blood 25 mmol/L (21-32); Calcium, Blood 8.8 mg/dL (8.5-10.1); Chloride, Blood 106 mmol/L (98-108); Creatinine, Blood 0.79 mg/dL (0.40-1.00); Globulin, Blood 4.3 g/dL (2.2-4.0); Glomerular Filtration Rate >60 (60-); Glucose, Blood 77 mg/dL (70-99); Potassium, Blood 3.7 mmol/L (3.5-5.5); Sodium, Blood 139 mmol/L (136-145); Total Protein, Blood 6.2 g/dL (6.4-8.2)
[2021-04-18] MEDS ORDERED: AMLO10 PO (16:17)
[2021-04-18] MEDS ORDERED: Aspir 8181 MG PO (16:18)
[2021-04-18] MEDS ORDERED: VITAMIN D31000 UNI1 PO (16:18)
[2021-04-18] MEDS ORDERED: METO25ER PO (16:19)
[2021-04-18] MEDS ORDERED: DOCUZEN 8.6-501 EACH PO (16:19)
[2021-04-18] MEDS ORDERED: PENVK500 PO (16:20)
[2021-04-18] MEDS ORDERED: MECL25 PO (16:22)
[2021-04-18] MEDS ORDERED: BISA10S PR (16:22)
[2021-04-18] MEDS ORDERED: [UNRECOGNIZED DRUG - OTHER] BOTHEYES (16:24)
[2021-04-18] MEDS ORDERED: OXYC5 PO (16:25)
[2021-04-18] MEDS ORDERED: ACET325 PO (16:25)
--- NOTE | 2021-04-18 19:25 | NUR ---
184 PT ADMITTED TO ROOM FROM ER. ON BED. TRANSFERRED SLIDE BED TO BED. REPORTING RN STATES PT OBTUNDED. AWAKENS TO STERNAL RUB MOANS,THEN BACK TO SLEEP. NO TALKING. DURING TRANSFER TO NEW BED, PT EYES OPENED. TALKED. ANSWERED SOME QUESTIONS. ABLE TO TELL ME HER NAME, , AGE, CORRECT DATE MONTH, YR AND DAY, ABLE TO TELL ME PRESIDENT IS [place]. NOT SURE WHERE WAS. BELIEVES IS [place], THINKS LIVES AT HOME. IS FROM [place]. LUNGS CLEAR, RESP EASY, UNLABORED. ON 1L O2. H/R IRREG. NO EDEMA NOTED. HYPO B/T. IN ATTENDS, CDI. SCAR, MKID ABD, BILAT KNEE, ALL CDI OLD. SPOT ON BOTH BILAT FEET ON BOTTOM. , NO BLEEDING. MINOR RED COCCYX NOTED. BRUISING BILAT ABOVRE ANKLES. BED IN LOW POSITION, CALL LITE IN REACH, BED ALARM ON FOR SAFETY
[2021-04-19 04:57] LABS: BASOPHILS ABSOLUTE AUTO 0.08 K/mm3 (0.00-0.23); BASOPHILS PERCENT AUTO 1 % (0-2); EOSINOPHILS ABSOLUTE AUTO 0.06 K/mm3 (0.00-0.68); EOSINOPHILS PERCENT AUTO 1 % (0-6); Hemoglobin 9.8 g/dL (11.5-16.0); IMMATURE GRAN ABSOLUTE AUTO 0.05 K/mm3 (0.00-0.10); IMMATURE GRAN PERCENT AUTO 1 % (0-1); LYMPHOCYTES PERCENT AUTO 14 % (21-46); MONOCYTES ABSOLUTE AUTO 0.56 K/mm3 (0.16-1.47); MONOCYTES PERCENT AUTO 6 % (4-13); Mean Corpuscular HGB 25.7 pg (26.0-34.0); Mean Corpuscular HGB Conc 30.6 g/dL (31.5-36.5); Mean Corpuscular Volume 84 fL (80-100); Mean Platelet Volume 8.8 fL (9.1-12.4); NEUTROPHILS ABSOLUTE AUTO 7.33 K/mm3 (1.96-9.15); NEUTROPHILS PERCENT AUTO 78 % (41-73); Platelet Count 771 K/mm3 (150-400); RDW Coefficient Variation 17.3 % (11.7-14.2); RDW Standard Deviation 53.8 fL (35.1-46.3); Red Blood Cell Count 3.81 M/mm3 (3.80-5.20); White Blood Cell Count 9.38 K/mm3 (4.00-11.30)
[2021-04-19 05:20] LABS: Alanine Aminotransfer (ALT/SGP 10 U/L (12-78); Albumin, Blood 2.5 g/dL (3.4-5.0); Albumin/Globulin Ratio 0.7 (0.8-1.8); Alk Phos 54 U/L (50-136); Anion Gap 12 mmol/L (6-16); Aspartate Aminotrans (AST/SGOT 6 U/L (12-37); Bilirubin, Total 0.5 mg/dL (0.1-1.0); Blood Urea Nitrogen 10 mg/dL (8-24); Bun/Creatinine Ratio 14.3 (12.0-20.0); CO2, Blood 23 mmol/L (21-32); Chloride, Blood 107 mmol/L (98-108); Globulin, Blood 3.8 g/dL (2.2-4.0); Glomerular Filtration Rate >60 (60-); Glucose, Blood 67 mg/dL (70-99); Potassium, Blood 3.1 mmol/L (3.5-5.5); Sodium, Blood 142 mmol/L (136-145); Total Protein, Blood 6.3 g/dL (6.4-8.2)
--- NOTE | 2021-04-19 15:40 | NUR ---
PATIENT HAS BEEN AWAKE AND ALERT SINCE APPROXIMATELY 1030 THIS MORNING; VERY CONFUSED AND DISORIENTED. SHE HAS TROUBLE PUTTING HER WORDS TOGETHER BUT IS ABLE TO MAKE HER NEEDS KNOWN. VITALS STABLE, HOWEVER HR HAS BEEN TRENDING UPWARDS PER TELE MONITOR; DID ADMINISTER AM DOSE OF METOPROLOL THAT WAS HELD DUE TO PATIENT BEING SO SLEEPY THIS MORNING TO SEE IF THAT WILL ASSIST WITH HR MANAGEMENT. PATIENT FINISHING UP ADMINISTRATION OF IV KCL. PATIENT GIVE PO WATER AND SWALLOWED WITHOUT TROUBLE, SHE HAS BEEN ASKING FOR FOOD ALL DAY. i CALLED AND INFORMED DR SUSAN MD GAVE ORDERS FOR DIET AT DINNER. PATIENT IS RESTING IN ROOM AT THIS TIME WITH FRIEND AT BEDSIDE. CALL LIGHT IN REACH.
[2021-04-20 04:49] LABS: Hematocrit 33.2 % (33.0-51.0); Hemoglobin 10.4 g/dL (11.5-16.0); Mean Corpuscular HGB 26.1 pg (26.0-34.0); Mean Corpuscular HGB Conc 31.3 g/dL (31.5-36.5); Mean Corpuscular Volume 83 fL (80-100); Mean Platelet Volume 8.8 fL (9.1-12.4); Platelet Count 732 K/mm3 (150-400); RDW Coefficient Variation 17.3 % (11.7-14.2); RDW Standard Deviation 52.7 fL (35.1-46.3); Red Blood Cell Count 3.99 M/mm3 (3.80-5.20); White Blood Cell Count 10.72 K/mm3 (4.00-11.30)
[2021-04-20 05:12] LABS: Anion Gap 6 mmol/L (6-16); Blood Urea Nitrogen 6 mg/dL (8-24); Bun/Creatinine Ratio 8.8 (12.0-20.0); CO2, Blood 28 mmol/L (21-32); Chloride, Blood 107 mmol/L (98-108); Creatinine, Blood 0.69 mg/dL (0.40-1.00); Glomerular Filtration Rate >60 (60-); Glucose, Blood 89 mg/dL (70-99); Potassium, Blood 2.9 mmol/L (3.5-5.5); Sodium, Blood 141 mmol/L (136-145)
--- NOTE | 2021-04-20 05:55 | NUR ---
PATIENT WAS FULLY AWAKE AND ALERT IN EVENING BEFORE FALLING ASLEEP LAST NIGHT. CELY STATED SHE HAD BEEN FEELING INCREASINGLY POORLY SINCE SHE SHATTERED HER ANKLE LAST EARLY SPRING. VERY GREATFUL TO BE FEELING BETTER. NO REQUESTS FOR PAIN MEDICATION, HOWEVER, WHEN ASKED ABOUT HER COMFORT LEVEL, SHE REPLIED "JUST A WARM BLANKET, AND ICE WATER" SHE SLEPT THE BULK OF THE NIGHT
--- NOTE | 2021-04-20 10:30 | NUR ---
UPDATE HEART RATE CONSISTENTLY ABOVE 120'S THIS AM. PT ASYMPTOMATIC. BP STABLE. DR. DAVIS NOTIFIED AND NEW ORDERS RECEIVED. WILL CONTINUE TO MONITOR CLOSELY.
--- NOTE | 2021-04-20 17:53 | NUR ---
SHIFT SUMMARY PT AWAKE AND ALERT ALL SHIFT. VS STABLE. HR HAS BEEN 110'S THIS EVENING PER TELEMETRY. BP STABLE. O2 SATS REMAIN ABOVE 90% ON RA. PT DENIES ANY PAIN. PT REPOSITIONED WITH ASSISTANCE Q2H AND NEEDED. PT ABLE TO ASSIST WITH ROLLING. INCONTINENT OF BLADDER THIS SHIFT AND ATTENDS CHANGED NEEDED. PT ATTEMPTED TO USE THE BEDPAN MULTIPLE TIMES THIS SHIFT, BUT NO BM. SON WAS AT BEDSIDE DURING VISITING HOURS. WILL CONTINUE TO MONITOR AND REPORT TO ONCOMING RN. CALL LIGHT IN REACH AND PT CALLING APPROPRIATELY.
--- NOTE | 2021-04-21 02:54 | NUR ---
PATIENT WAS RESTING QUIETLY IN BED WHEN SHE BEGAN TO EXPERIENCE A DRY HACKING COUGH IN HER SLEEP. THIS RN AND THE DIRECTOR SPEECH ENTERED THE ROOM TO FIND THE PATIENT SOUND ASLEEP AND DRENCHED IN SWEAT, PATIENT WAS VERY DIFFICULT TO AROUSE, AND APPEARED VERY SIMILAR IN APPEARANCE TO THE NIGHT SHE CAME IN. VITAL SIGNS WERE ALL STABLE AT THE TIME (SEE VITAL SIGNS FLOW SHEET) AND ON TELE, PATIENT WAS SINUS TACH 105 TO 110 WITH FREQUENT PAC'S AMD PVC'S. . PATIENT WAS ABLE TO WAKE UP MORE FULLY AND ANSWER QUESTIONS ABOUT HER DAUGHTER, THEN WANTED TO GO BACK TO SLEEP. 15 MINUTES, CELY WAS STILL AWAKE AND ABLE TO CARRY ON A SIMPLE CONVERSATION ABOUT HER DAUGHTER AND ABOUT HER FRUSTRATION ABOUT SOMETIMES KNOWING WHAT TO SAY AND NOT KNOW THE WORDS. WILL CONTINUE CLOSE MONITORING
[2021-04-21 05:33] LABS: Anion Gap 6 mmol/L (6-16); Blood Urea Nitrogen 9 mg/dL (8-24); CO2, Blood 28 mmol/L (21-32); Calcium, Blood 9.1 mg/dL (8.5-10.1); Chloride, Blood 111 mmol/L (98-108); Creatinine, Blood 0.69 mg/dL (0.40-1.00); Glomerular Filtration Rate >60 (60-); Glucose, Blood 98 mg/dL (70-99); Magnesium, Blood 1.7 mg/dL (1.6-2.4); Potassium, Blood 3.5 mmol/L (3.5-5.5); Sodium, Blood 145 mmol/L (136-145)
--- NOTE | 2021-04-21 06:39 | NUR ---
Enedelia was awake and alert most of the night, until around 0300 when this RN and the THERMITE BOMB LOADER entered the room to get early learning teacher vitals. Enedelia was sleeping really hard and difficult to wake up. for a moment, she had difficulty explaining what kind of place she was in, and was soaked in sweat. . Once she woke up, she was able to piece together the happenngs of the week, and how she had been feeling increasingly bad for several months since her Covid then breaking her ankle. No further episodes overnight
--- NOTE | 2021-04-21 15:50 | NUR ---
New POLST copied and sent to medical records for scanning into EMR. Copy and origninal placed back on pt's chart.
--- NOTE | 2021-04-21 19:30 | NUR ---
SHIFT SUMMARY PATIENT ALERT X3 THIS SHIFT. PATIENT OCCASIONALLY FORGETFUL. PATIENT SOMNULENT THIS AM DURING REPORT, THEN ALERT ONCE SHE WOKE A SHORT TIME LATER. PATIENT SITTING UP IN BED THROUGHOUT THIS SHIFT, CONVERSING WITH STAFF. PATIENT FREQUIENTLY AND QUICKLY BECOMES TEARFUL WHEN SAD SUBJECTS ARISE. PATIENT'S DAUGHTER IN THE ROOM THIS AFTERNOON. PATIENT WORKED WITH PHYSICAL THERAPY THIS AFTERNOON. PATIENT CURRENTLY SITTING UP IN BED WATCHING TELEVISION.
--- NOTE | 2021-04-22 04:38 | NUR ---
SHIFT SUMMARY ADMITTED FOR ACUTE ENCEPHALOPATHY/UTI. DNR CODE. PLAN IS FOR IV ANTIBIOTICS, DC BACK TO [facility] WHEN STABLE. SHE WAS ANXIOUS THROUGHOUT SHIFT, WITH LABILE MOODS. ABDOMINAL CT SCAN PERFORMED THIS SHIFT. TELEMETRY: TACH W/PAC'S AND PVC'S @ 100-115 BPM. SHE DID VOMIT ONCE THIS SHIFT, THIS WAS PRECEDED BY A BOUT OF ANXIETY. BM'S REPORTED LOOSE. HX: CHRONIC PAIN PILL USE, DEPRESSION, DEMENTIA.
[2021-04-22 04:41] LABS: Hematocrit 37.4 % (33.0-51.0); Hemoglobin 11.6 g/dL (11.5-16.0); Mean Corpuscular HGB 25.6 pg (26.0-34.0); Mean Corpuscular Volume 83 fL (80-100); Mean Platelet Volume 8.9 fL (9.1-12.4); Platelet Count 858 K/mm3 (150-400); RDW Standard Deviation 54.5 fL (35.1-46.3); Red Blood Cell Count 4.53 M/mm3 (3.80-5.20); White Blood Cell Count 10.45 K/mm3 (4.00-11.30)
[2021-04-22] MEDS ORDERED: DULO60 PO (05:06)
[2021-04-22] MEDS ORDERED: POTA10T PO (05:09)
[2021-04-22] MEDS ORDERED: OLAN5 PO (05:10)
[2021-04-22 05:17] LABS: Albumin, Blood 2.3 g/dL (3.4-5.0); Anion Gap 6 mmol/L (6-16); Blood Urea Nitrogen 11 mg/dL (8-24); Bun/Creatinine Ratio 14.4 (12.0-20.0); CO2, Blood 27 mmol/L (21-32); Chloride, Blood 109 mmol/L (98-108); Creatinine, Blood 0.76 mg/dL (0.40-1.00); Ferritin, Serum 343 ng/mL (8-252); Glomerular Filtration Rate >60 (60-); Glucose, Blood 106 mg/dL (70-99); Iron Serum 15 ug/dL (50-170); Percent Saturation 11.5 % (15.0-50.0); Phosphorus, Blood 4.4 mg/dL (2.5-4.9); Potassium, Blood 3.5 mmol/L (3.5-5.5); Sodium, Blood 142 mmol/L (136-145); Total Iron Binding Capacity 130 ug/dL (250-450)
--- NOTE | 2021-04-23 03:07 | NUR ---
SHIFT SUMMARY PT SLEPT MOST OF THE EVENING. PT COMPLAINED OF NAUSEA WHENEVER AWAKE. MEDICATED PER EMAR. PT WAS ABLE TO TOLERATE PO MEDICATIONS WITHOUT ANY EMESIS. LIDOCAINE PATCH REMAINED ON BACK THROUGHOUT THE NIGHT. OFFERED PAIN MEDICATION BUT PT DECLINED. PT REMAINED IN BED. INCONTINENT. A/O BUT SLEEPY. VITAL SIGNS STABLE. WILL CONTINUE TO MONITOR.
--- NOTE | 2021-04-23 04:06 | NUR ---
ASSUMED CARE OF PATIENT. SLEEPING QUIETLY IN BED, NO APPARENT DISTRESS NOTED. APPEARS COMFORTABLE. CALL LIGHT WITHIN REACH AND SIDE RAILS UPX2. WILL CONT TO MONITOR.
--- NOTE | 2021-04-23 09:36 | NUR ---
dr garcia by to see pt terri orta and jacklyn sultana ordered and instructed to give zayrafran
--- NOTE | 2021-04-23 10:47 | NUR ---
message left with pt's daughter darrell she called earlier update given
--- NOTE | 2021-04-23 17:50 | NUR ---
Shift Summary Assumed care at 1500 from [place]. Patient resting in bed upon entering room. PT Curry at bedside attempting to work with patient, patient refused and promised to work with PT tomorrow. Tearful and reminiscent about past with daughter. Patient needing extra emotional support and appears hopeless. Patient states OT at SNF had discharge patient from their care d/t patient not progressing with therapy. Verbalizes fear of having to live out the rest of her life in a fci care facility. Gave encouragement to stay strong and hopeful. Malorie (daughter) has been updated RE patient's current condition and mentation. Phone number is [phone]. Lidoderm patch placed to lower back. [facility].
--- NOTE | 2021-04-24 05:24 | NUR ---
SHIFT SUMMARY ADMITTED FOR ACUTE ENCEPHALOPATHY. DNR CODE. TELEMETRY: TACH @ 98 BPM W/PAC'S & PVC'S. SHE IS ON[place]AG[place]. SHE IS COOPERATIVE W/CARE. SHE IS INCONTINENT. SHE IS TEARFUL AT TIMES. HX OF DEMENTIA, CAN BE FORGETFUL. ST/PT/OT ARE WORKING WITH PT. PLEASE PROVIDE PAIN MEDICATION BEFORE PHYSICAL THERAPY. SHE IS FROM [facility] AND MAY RETURN THERE. HER PO INTAKE IS POOR
--- NOTE | 2021-04-24 17:07 | NUR ---
PT AOX4 AND COOPERATIVE OF CARE. PT COMPLETED BARIUM SWALLOW WITH ST AND HAD SWALLOW PRECAUTIONS ORDERED. PT VERBALIZING SHE DOES NOT LIKE THE THICKENED WATER, BUT WAS EDUCATED ON WHY SHE NEEDS IT TO PREVENT ASPIRATION. PT HAS WORKED WITH PHYSCIAL THERAPY AND WAS TREATED FOR PAIN PRIOR WORKOUT. PT IS RESTING IN BED AT THIS TIME WITH FRIEND VISITING. NO DISTRESS NOTED AND CALL LIGHT WITHIN REACH WILL CONTINUE TO MONITOR.
--- NOTE | 2021-04-24 18:45 | NUR ---
Spiritual care note: Lengthy visit with Enedelia. She told me about how difficult the past few months have been. She states that she had almost given up on ever walking again, but became inspired by Curry in PT to keep trying. She has a son and dtr. Dtr is POA and very devoted. Enedelia lost her many years ago. She was an gluing machine operator for many years. She responded strongly to spiritual group therapy counselor and prayer. She will benefit from continued spiritual encouragement. I will continue to visit Enedelia as schedule permits.
[2021-04-25 05:51] LABS: Albumin, Blood 2.1 g/dL (3.4-5.0); Anion Gap 6 mmol/L (6-16); Blood Urea Nitrogen 11 mg/dL (8-24); Bun/Creatinine Ratio 15.3 (12.0-20.0); CO2, Blood 26 mmol/L (21-32); Calcium, Blood 8.6 mg/dL (8.5-10.1); Chloride, Blood 109 mmol/L (98-108); Creatinine, Blood 0.72 mg/dL (0.40-1.00); Glomerular Filtration Rate >60 (60-); Glucose, Blood 75 mg/dL (70-99); Potassium, Blood 3.8 mmol/L (3.5-5.5); Sodium, Blood 141 mmol/L (136-145)
--- NOTE | 2021-04-25 18:40 | NUR ---
SHIFT SUMMARY CELY GOT UP TO STAND WITH PT WITH MAX ASSIST OF TWO TODAY. PAINFUL BACK AND KNEE, GOT PRN OXY AND LIDOCAINE PATCH WHICH HELPED. INCONT URINE. GI CONSULTED, AWAITING GI DOCTOR. PT REALLY DISLIKES ASPIRATION PRECAUTIONS AND THICKENED LIQUID AND TAKING PILLS WITH MEDS. REINFORCEMENT GIVEN ABOUT NEED TO AVOID ASPIRATION. PT TOOK PILLS IN APPLESAUCE WITHOUT PROBLEMS. POOR PO INTAKE. CALL LIGHT IN REACH,W CTM
--- NOTE | 2021-04-26 07:22 | NUR ---
SHIFT SUMMARY: PATIENT IS A&OX3, VSS, TOLERATING DIET WITH NECTAR THICK LIQUIDS FAIR. ASPIRATION PRECAUTIONS NOTED, PATIENT REFUSED TO TAKE PILLS WITH APPLE SAUCE BUT DID TAKE THEM 1 AT A TIME WITH THICKENED JUICE.
--- NOTE | 2021-04-26 16:40 | NUR ---
SHIFT SUMMARY CELY RESTED COMFORTABLY THIS SHIFT. TELE DC'D PER MD. DIDN'T WANT TO TAKE PILLS IN APPLESAUCE, BUT CONSENTED TO HAVING THEM WITH THICKENED APPLEJUICE. INCONT URINE AND STOOL THIS SHIFT. DR BOSS SPOKE TO DR HERNANDEZ, HE WILL COME AND CONSULT. ATE HALF OF HER MEAL AT BREAKFAST, LESS FOOD INTAKE AT LUNCH, STILL STRUGGLING TO MAINTAIN PO INTAKE. DENIED PAIN. DECLINED LIDOCAINE PATCH. CALL LIGHT IN REACH, TM
--- NOTE | 2021-04-27 07:49 | NUR ---
SHIFT SUMMARY: NO ACUTE CHANGES THIS SHIFT, VSS. PATIENT HAS BEEN NPO, PER GI MD ORDER, SINCE MIDNIGHT. REPORTING LEFT ANKLE/KNEE PAIN, OCCASSIONAL CHRONIC BACK PAIN. OXYCODONE GIVEN X1 AT HS WAS EFFECT FRO PAIN CONTROL. INC. OF A MEDIUM SOFT BROWM BM AND URINE. VOIDING WITHOUT DIFFICULTY. NO COUGHING OBSERVED WITH PILL ADMINISTRATION.
--- NOTE | 2021-04-27 11:42 | NUR ---
POSITIVE COVID COVID TEST DONE PRIOR TO PLANNED EGD. RESULT CAME BACK POSITIVE. NOTIFIED CHHA, RN SENIOR SOLUTIONS CONSULTANT, AND DR YADAV. DR YADAV CANCELLED THE EGD, STATED IT WAS NOT URGENT AND THAT HE WOULD SPEAK DR HERNANDEZ. NOTIFIED RN SENIOR SOLUTIONS CONSULTANT OF THIS. PT PLACED IN ENHANCED ISO PRECAUTIONS. PATIENT STATES SHE HAS HAD COVID IN THE PAST, CURRENTLY HAS NO SYMPTOMS.
--- NOTE | 2021-04-27 18:12 | NUR ---
SHIFT SUMMARY PATIENT ALERT AND ORIENTED THROUGHOUT SHIFT. TOLERATING THICKENED LIQUIDS AND MECH SOFT DIET. INC OF URINE AND BOWEL. ATTENDS CHANGED PRN. SWOLLEN LEFT ARM AND LEFT ANKLE, BOTH ELEVATED ON PILLOWS. EGD TODAY CANCELLED DUE TO POSITIVE COVID TEST. PLACED IN DROPLET ISO PRECAUTIONS. ASYMPTOMATIC AT THIS TIME. GI IS FOLLOWING TO INVESTIGATE CAUSE OF ASPIRATION.
--- NOTE | 2021-04-28 16:23 | NUR ---
SHIFT SUMMARY PT A/O X3 AND BEDBOUND THIS SHIFT. PT EXPRESSED CONCERN THIS SHIFT IN REGARDS TO HER DIET. SHE IS QUITE UNHAPPY ABOUT THE THICKENED LIQUIDS AND WOULD RATHER TRY THE THIN LIQUIDS. PT EDUCATED ON THE PROS AND CONS OF THIS. THE PT IS FEELING VERY DISCOURAGED AND HAS BEEN EMOTIONAL THIS SHIFT. PALLIATIVE CARE CONSULTED. TREATED FOR PAIN AND NAUSEA PER EMR. NOTIFIED THAT PT IS TO REMAIN IN COVID ISOLATION FOR 10 DAYS. VSS. RESTING QUIETLY IN BED WITH CALL LIGHT IN REACH.
--- NOTE | 2021-04-28 20:07 | NUR ---
pt very fatigued and upset about food and water. Asisted with bedside care pt had bowel movement and skin care give and therputic touch. Review with pt swallow eval. She kept stating she is 86 years old and can do what she wants. Review with her moral obligations to do no harm. She is expressing great grief and loosing more of her function and griving not having food. After much coaxing got her to try the thickened lemon water. She was suprisingly happy and had two of them. Sw reviewed rehab and pain and function and her future briefly. She is hightly motivated by susie the PT. She wants to walk again and hopes to imrove her swallow. After the [facility] mention of food switched the focus of the converstion to how can we get some pleasure back with food. We went through some possible foods she would enjoy and relayed that to nursing. Pt also express great grief at having covid again it had amde her feaful of her future. She hope this is not her new baseling. Will call daughter to review her plan and understanding of her mothers needs. pt pps score is 30%.
[2021-04-29 05:35] LABS: Hematocrit 32.6 % (33.0-51.0); Hemoglobin 9.9 g/dL (11.5-16.0); Mean Corpuscular HGB 25.6 pg (26.0-34.0); Mean Corpuscular HGB Conc 30.4 g/dL (31.5-36.5); Mean Corpuscular Volume 85 fL (80-100); Mean Platelet Volume 9.8 fL (9.1-12.4); Platelet Count 596 K/mm3 (150-400); RDW Coefficient Variation 18.4 % (11.7-14.2); RDW Standard Deviation 56.4 fL (35.1-46.3); Red Blood Cell Count 3.86 M/mm3 (3.80-5.20); White Blood Cell Count 13.93 K/mm3 (4.00-11.30)
[2021-04-29 05:51] LABS: Albumin, Blood 1.8 g/dL (3.4-5.0); Anion Gap 4 mmol/L (6-16); Blood Urea Nitrogen 13 mg/dL (8-24); Bun/Creatinine Ratio 17.1 (12.0-20.0); CO2, Blood 30 mmol/L (21-32); Calcium, Blood 8.5 mg/dL (8.5-10.1); Chloride, Blood 102 mmol/L (98-108); Creatinine, Blood 0.76 mg/dL (0.40-1.00); Glomerular Filtration Rate >60 (60-); Glucose, Blood 93 mg/dL (70-99); Phosphorus, Blood 3.9 mg/dL (2.5-4.9); Potassium, Blood 4.1 mmol/L (3.5-5.5); Sodium, Blood 136 mmol/L (136-145)
--- NOTE | 2021-04-29 13:31 | NUR ---
BACK TO RA PT SATING AT 94% ON RA AFTER REASSESSMENT.
--- NOTE | 2021-04-29 16:25 | NUR ---
SHIFT SUMMARY PT DECLINING TO SIT COMPLETELY UPRIGHT FOR MEALS. PT STATES HER PAIN IS TOO SEVERE TO DO THIS. PT COMPLAINING ABOUT HER DIET AND THICKENED FLUIDS BUT AGREEABLE TO DRINKING THE FLUID WHEN IT IS COLD. PT DECLINED PHYSICAL THERAPY TODAY DUE TO FEELING TOO FATIGUED. SOFT BM, INCONT TODAY. DR. BLAIR NOTIFIED OF CRACKLES AND THE NEED FOR O2 THIS AM. PT NOW BACK ON RA AND SATING IN THE MID 90S. NO OTHER ACUTE CHANGES IN ASSESSMENT AT THIS TIME. PT REFUSING REPOSITIONS OF HER HIPS THIS SHIFT. VS REVIEWED. PT RESTING IN BED. WATCHING TV WITH CALL LIGHT IN REACH.
--- NOTE | 2021-04-29 16:25 | NUR ---
review of pt preferance with make up arranger and review of pt swallow with speech therapist. will see wahat plan is with physicl therpay.
--- NOTE | 2021-04-29 23:30 | NUR ---
RADIOLOGY CALLED [facility]LIER RE CHEST CT. WHEN THEY WERE NOTIFIED OF COVID POAITIVE, VOICED THEY WERE BETTER PREPARED TO DO IT TOMORROW THEY WOULD HAVE TO "CLOSE DOWN" ONE OF THEIR ROOMS TO DO IT AND WERE SHORT ON STAFF. DISCUSSED THIS WITH CHARGE NURSE, PT ASYMPTOMATIC. WILL DO THE CHEST CT TOMORROW. PT CURRENTLY RESTING QUIETLY. CALL LIGHT IN REACH' ISOLATION PRECAUTIONS MAINTAINED
--- NOTE | 2021-04-30 05:57 | NUR ---
TRANSPORT HERE TO TAKE PT TO RADIOLOGY FOR CHEST CT. ASYMPTOMATIC
--- NOTE | 2021-04-30 06:37 | NUR ---
ADULT DAYCARE COORDINATOR SUMMARY RETURNED FROM RADIOLOGY FOR CHEST CT. TOLERATED WELL. HAS BEEN RESTING QUIETLY WITH FEW INTERRUPTIONS SINCE HS. PRECAUTIONS MAINTAINED. CALL LIGHT IN REACH
--- NOTE | 2021-04-30 14:52 | NUR ---
PATIENT HAS BEEN PLEASANT AND COOPERATIVE WITH STAFF. DISCHARGE PLANNERS LOOKING TO TRANSFER PATIENT TO COVID UNIT AT [facility]; UNSURE OF WHEN THAT WILL TAKE PLACE. PATIENT HAS BEEN RESPONSIVE WITH STAFF AND CALLING APPROPRIATELY FOR STAFF ASSIST. NO ACUTE CHANGES TO REPORT OF AT THIS TIME. CALL LIGHT REMAINS IN REACH.
--- NOTE | 2021-04-30 22:56 | NUR ---
ASSUMED CARE. AOX3. BEDBOUND. LUNG SOUNDS CLEAR T/O. HR SINUS. MEDICATED FOR PAIN AND DISCOMFORT ALL OVER. NO SOB, NO CHEST PAIN NOTED. BRUISING SCATTERED ALL OVER. LYMPHEDEMA IN THE LUE. FAIR APPETITE. GOOD INTAKE OF FLUIDS SHE STATES. MEDS GIVEN. ALREADY HAD ATTENDS CHANGED BY REPAIR ELECTRIC MOTOR ASSEMBLER AND REPOSITIONED. DENIES ANY OTHER NEEDS. CALL LIGHT IS IN REACH.
[2021-05-01 04:49] LABS: Hematocrit 30.1 % (33.0-51.0); Hemoglobin 9.1 g/dL (11.5-16.0); Mean Corpuscular HGB 25.7 pg (26.0-34.0); Mean Corpuscular HGB Conc 30.2 g/dL (31.5-36.5); Mean Corpuscular Volume 85 fL (80-100); Mean Platelet Volume 9.5 fL (9.1-12.4); Platelet Count 546 K/mm3 (150-400); RDW Coefficient Variation 18.3 % (11.7-14.2); RDW Standard Deviation 56.2 fL (35.1-46.3); Red Blood Cell Count 3.54 M/mm3 (3.80-5.20); White Blood Cell Count 9.43 K/mm3 (4.00-11.30)
[2021-05-01 05:13] LABS: Alanine Aminotransfer (ALT/SGP 8 U/L (12-78); Albumin, Blood 1.7 g/dL (3.4-5.0); Albumin/Globulin Ratio 0.4 (0.8-1.8); Alk Phos 66 U/L (50-136); Anion Gap 5 mmol/L (6-16); Aspartate Aminotrans (AST/SGOT 11 U/L (12-37); Bilirubin, Total 0.1 mg/dL (0.1-1.0); Blood Urea Nitrogen 11 mg/dL (8-24); CO2, Blood 30 mmol/L (21-32); Calcium, Blood 8.6 mg/dL (8.5-10.1); Chloride, Blood 103 mmol/L (98-108); Creatinine, Blood 0.65 mg/dL (0.40-1.00); Globulin, Blood 3.8 g/dL (2.2-4.0); Glomerular Filtration Rate >60 (60-); Glucose, Blood 83 mg/dL (70-99); Potassium, Blood 4.2 mmol/L (3.5-5.5); Sodium, Blood 138 mmol/L (136-145); Total Protein, Blood 5.5 g/dL (6.4-8.2)
--- NOTE | 2021-05-01 05:36 | NUR ---
SHIFT SUMMARY: AOX3, VERY DEPENDABLE ON OTHERS. SHE WOULD NOT EVEN MOVE HER ARM OUT OF THE COVERS SAYING SHE COULD NOT LIFT THE COVERS IT HAD HER TRAPPED. COVERS WERE LOOSE OVER HER ARM ALL SHE HAD TO DO WAS MOVE IT AND SHE COULD MOVE HER ARM. SHE ALSO ASK THINGS LIKE FLUFFING HER PILLOW, WHEN I TRIED TO GET HER TO DO IT, SHE SAID SHE COULDN'T. ENCOURAGED HER TO DO MORE FOR HERSELF BUT SHE JUST APPEARS TO BE FAILURE TO THRIVE. LUNG SOUNDS ARE CLEAR, NO COUGH OR CONGESTION. PAIN IN NECK AND BODY. PAIN MEDICATION X1. VSS, AFEBRILE. SLEPT OFF AND ON. NO ACUTE CHANGES. CALL LIGHT REMAINS IN REACH.
[2021-05-01 12:40] LABS: SARS-Cov-2 (COVID-19) PCR, MMC POSITIVE (NEGATIVE)
--- NOTE | 2021-05-01 17:14 | NUR ---
SHIFT SUMMARY ANTIBODY LABWORK TAKEN TO R/O A NEW COVID INFECTION. RESULTS DETERMINE DISCHARGE PLACE. NO ACUTE CHANGES IN ASSESSMENT AT THIS TIME. PT HAS HAD 3 LOOSE INCONT BMS TODAY. MEDICATED FOR PAIN ONCE SO FAR THIS SHIFT. PT APPEARS TO HAVE MORE ENERGY AND APPETITIE HAS IMPROVED FROM 2 DAYS AGO. PT WORKED WITH PHYSICAL THERAPY. CURRENTLY RESTING IN BED. CALL LIGHT IN REACH. VS REVIEWED. PTS SLIGHT TEMP THIS AFTERNOON AT 99.5. BLINDS CLOSED AND ROOM TEMP DECREASED.
--- NOTE | 2021-05-01 22:08 | NUR ---
ASSUMED CARE. AOX3. ASKED FOR PAIN MEDS WITH PM MEDS. ADMINSTERED THEM. STATES SHE WORKED WITH PT/OT TODAY. ENCOURAGED CONTINUED PROGRESS AND SELF CARE. SHE STATES IT MADE HER FEEL BETTER. LUNG SOUNDS CLEAR, NO CHEST PAIN. NO CHANGES IN ASSESSMENT FROM YESTERDAY. VITALS ARE GOOD. TUCKED IN FOR BED, CALL LIGHT IN REACH. WILL CONTINUE TO MONITOR.
--- NOTE | 2021-05-02 05:35 | NUR ---
SHIFT SUMMARY: AOX3, PLEASANT THIS SHIFT. MEDICATED FOR PAIN PRIOR TO BEDTIME. VS WNL, AFEBRILE. STILL AWAITING RESULTS OF COVID ANTIBODY TEST. SLEPT WELL T/O NIGHT. DENIED ANY CONCERNS OR COMPLAINTS. CALL LIGHT IN REACH, AND BED ALARM ON.
[2021-05-02 12:10] LABS: SARS COV-2 IGG AB Positive (Negative); SARS COV-2 IGM AB Negative (Negative)
--- NOTE | 2021-05-02 18:10 | NUR ---
PT NO LONGER IN ISO PRECAUTIONS. COVID NEGATIVE. PT WORKED WITH PT AND OT, HAD HER ON THE SIDE OF BED. SHE IS PLEASANT AND WILL ASSIST IN HER ADL'S WHEN ENCOURAGED. NO ACUTE CHANGES. CALL LIGHT WITHIN REACH.
--- NOTE | 2021-05-02 22:55 | NUR ---
ASSUMED CARE. AOX3, MORE ACTIVE IN HER CARE. SHE IS DOING MORE FOR HER SELF. STATES SHE PT TALKED TO HER ABOUT THINGS WHICH HELPED TO MOTIVATE HER. SHE PLANS ON CONTINUEING TO TRY AND DO MORE TILL SHE IS ABLE TO CARE FOR HERSELF. ATTENDS DRY. MILD EDEMA IN LEGS. BRUISING SCATTERED T/O. REDNESS TO BOTTOM. VSS. AFEBRILE. WILL CONTINUE TO MONITOR. MEDICATED FOR PAIN. CALL LIGHT IN REACH.
--- NOTE | 2021-05-03 06:24 | NUR ---
SHIFT SUMMARY: CELY HAD A GOOD NIGHT, SLEPT WELL. WAS ENCOURAGED AND TALKING ABOUT DOING MORE FOR HERSELF. WAS EXCITED ABOUT DOING EXERCISES AND THAT SHE IS ABLE TO RETURN TO [facility]. DID NOT HAVE ANY COMPLAINS THIS SHIFT. MEDICATED FOR PAIN X1. ABLE TO MOVE MORE IN BED. VS WNL, AFEBRILE. NO ACUTE CHANGES OR CONCERNS. CALL LIGHT IN REACH.
--- NOTE | 2021-05-03 18:18 | NUR ---
NO ACUTE CHANGES. PT IMPROVING IN STRENGTH.
--- NOTE | 2021-05-04 03:20 | NUR ---
SHIFT SUMMARY PATIENT HAD NO ACUTE CHANGES OBSERVED. AXOX 3 AND BEDREST. TAKES MEDICATION WHOLE X ONE EACH IN APPLESAUCE. NO IV ACCESS. EGEGIK. REPORTED GENERAL JOINT PAIN AND OXYCODONE 5 MG GIVEN PER EMAR. VSS/AFEBERILE. DENIES SOB AND N/V. CALL LIGHT IN REACH. BED IN LOWEST POSITION. WILL CONTINUE TO MONITOR UNTIL DAY SHIFT NURSE ASSUMES CARE.
[2021-05-04 11:44] LABS: Alanine Aminotransfer (ALT/SGP 13 U/L (12-78); Albumin, Blood 1.9 g/dL (3.4-5.0); Albumin/Globulin Ratio 0.5 (0.8-1.8); Alk Phos 65 U/L (50-136); Anion Gap 7 mmol/L (6-16); Aspartate Aminotrans (AST/SGOT 18 U/L (12-37); Bilirubin, Total 0.2 mg/dL (0.1-1.0); Blood Urea Nitrogen 8 mg/dL (8-24); Bun/Creatinine Ratio 11.7 (12.0-20.0); CO2, Blood 26 mmol/L (21-32); Chloride, Blood 109 mmol/L (98-108); Creatinine, Blood 0.68 mg/dL (0.40-1.00); Globulin, Blood 4.2 g/dL (2.2-4.0); Glomerular Filtration Rate >60 (60-); Glucose, Blood 98 mg/dL (70-99); Potassium, Blood 4.2 mmol/L (3.5-5.5); Sodium, Blood 142 mmol/L (136-145); Total Protein, Blood 6.1 g/dL (6.4-8.2)
--- NOTE | 2021-05-04 17:19 | NUR ---
PT IS ALERT AND ORIENTED ABLE TO EXPRESS ANY CONCERNS. PT HAS BEEN AFEBRILE THIS SHIFT WITH NO NVD NOTED. [facility] SOFT AND NECTAR THICK FLUIDS. CALL LIGHT WITHIN REACH BED IN LOW POSITION. WILL CONTINUE TO MONITOR.
[2021-05-05 05:21] LABS: Hematocrit 32.3 % (33.0-51.0); Hemoglobin 9.8 g/dL (11.5-16.0); Mean Corpuscular HGB 25.9 pg (26.0-34.0); Mean Corpuscular HGB Conc 30.3 g/dL (31.5-36.5); Mean Corpuscular Volume 85 fL (80-100); Mean Platelet Volume 9.3 fL (9.1-12.4); Platelet Count 607 K/mm3 (150-400); RDW Coefficient Variation 18.8 % (11.7-14.2); RDW Standard Deviation 58.1 fL (35.1-46.3); Red Blood Cell Count 3.79 M/mm3 (3.80-5.20); White Blood Cell Count 10.25 K/mm3 (4.00-11.30)
--- NOTE | 2021-05-05 06:22 | NUR ---
SHIFT SUMMARY A/O, ABLE TO MAKE NEEDS KNOWN. COOPERATIVE WITH CARE. CALLS AND ANSWERS QUESTIONS APPROPRIATELY. C/O PAIN/DISCOMFORT X1; MEDICATED PER EMAR. APPEARED TO REST MUCH OF THE NIGHT. VSS/AFEBRILE. NO ACUTE CHANGES NOTED. INCONT OF BOWEL AND BLADDER; ATTENDS IN PLACE, ROUTINE CHECKS. BED REMAINED IN LOWEST POSITION; ALARM ON. CALL LIGHT AND BELONGINGS WITHIN REACH. CONTINUE WITH CURRENT PLAN OF CARE. REPORT TO ONCOMING RN.
--- NOTE | 2021-05-05 07:24 | NUR ---
ASSUMED CARE: PT RESTING QUIELTY IN BED AT THIS TIME. BED ALARM ON AND BED IN LOW POSITION. NO ACUTE NEEDS OR CONCERNS AT THIS TIME.
--- NOTE | 2021-05-05 10:01 | NUR ---
PT C/O INCREASED SWELLING IN LEFT ARM. SPOKE WITH DR BLAIR WHO ORDERED ULTRA SOUND A R/O FOR DVT
--- NOTE | 2021-05-05 18:25 | NUR ---
SHIFT SUMMARY: PT HAS BEEN RESTING IN BED THIS AFTERNOON, DID HAVE A VISITOR EARLIER. PLAN IS FOR DC TO SNF ONCE PLANS APPROVED. MEDICATED X1 WITH TYLENOL. NO FURTHER NEEDS OR CONCERNS AT THIS TIME.
--- NOTE | 2021-05-06 04:49 | NUR ---
SUMMARY: PT A/OX4, [place] BUT CALLS APPROPRIATELY TO SPECIFY NEEDS. MOBILITY IS LIMITED AT THIS TIME D/T L.KNEE PAIN AND RECENT L.ANKLE FX, ROXICODONE PROVIDED FOR ADEQUATE RELIEF. PT/OT SAT HER AT EOB AND PERFORMED BED EXERCISES. PT MOVES SELF IN BED W/REPOSITIONING ASSIST PROVIDED PRN. ATTENDS CHANGED FOR INCONTINENCE. SHE SLEPT MAJORITY OF NOCTE. VSS/AFEBRILE, NO ACUTE CHANGES. PLAN IS TO D/C TO [facility] UPON APPROVAL. WCTM/REPORT TO ELLE SKINNER.
--- NOTE | 2021-05-06 07:09 | NUR ---
ASSUMED CARE: PT RESTING QUIETLY IN BED. NO ACUTE NEEDS OR CONCERNS AT THIS TIME.
--- NOTE | 2021-05-06 17:08 | NUR ---
SUMMARY PT AWAKE IN BED WATCHING TV, PT IS PLEASANT AND COOPERATIVE WITH CARE, HAS WORKED WITH PT/OT TODAY AND PLANS ARE TO RETURN TO [facility] TOMORROW, NO COMPLAINTS, WILL CONTIUE TO MONITOR
--- NOTE | 2021-05-07 11:16 | NUR ---
SUMMARY/DISCHARGE PT DISCHARGED BACK TO [facility], REPORT GIVEN TO MARIANELA, THE NURSE AT [facility], PT TAKEN OUT VIA WHEELCHAIR
== END 2021-05-07 11:06 | DRG 871 ==
LOC: ER 11:41 → MEDS 11:42
PROVIDERS: Emergency Medicine; Internal Medicine; Student in an Organized Health Care Education/Training Program; ADMIT Internal Medicine
PROC: 8E0ZXY6 Isolation (ICD-10-PCS; principal; 2021-05-01)
DX: A41.81 Sepsis due to Enterococcus (principal); G92 Toxic encephalopathy; U07.1 COVID-19; N39.0 Urinary tract infection, site not specified; K52.1 Toxic gastroenteritis and colitis; Z66 Do not resuscitate; F03.90 Unspecified dementia, unspecified severity, without behavioral disturbance, psychotic disturbance, mood disturbance, and anxiety; T40.2X5A Adverse effect of other opioids, initial encounter; E87.6 Hypokalemia; M19.90 Unspecified osteoarthritis, unspecified site; Z51.5 Encounter for palliative care; F32.9 Major depressive disorder, single episode, unspecified; Z96.651 Presence of right artificial knee joint; E88.09 Other disorders of plasma-protein metabolism, not elsewhere classified; E86.0 Dehydration; N18.30 Chronic kidney disease, stage 3 unspecified; R09.02 Hypoxemia; M54.9 Dorsalgia, unspecified; K44.9 Diaphragmatic hernia without obstruction or gangrene; R63.4 Abnormal weight loss; R62.7 Adult failure to thrive; G89.4 Chronic pain syndrome; I12.9 Hypertensive chronic kidney disease with stage 1 through stage 4 chronic kidney disease, or unspecified chronic kidney disease; T36.95XA Adverse effect of unspecified systemic antibiotic, initial encounter; T43.595A Adverse effect of other antipsychotics and neuroleptics, initial encounter; A40.8 Other streptococcal sepsis; R13.12 Dysphagia, oropharyngeal phase; D63.1 Anemia in chronic kidney disease; Z88.6 Allergy status to analgesic agent; Z88.1 Allergy status to other antibiotic agents; Z88.5 Allergy status to narcotic agent; Z88.2 Allergy status to sulfonamides; Z88.8 Allergy status to other drugs, medicaments and biological substances; Z91.048 Other nonmedicinal substance allergy status; Z90.710 Acquired absence of both cervix and uterus; Z98.890 Other specified postprocedural states; Z90.49 Acquired absence of other specified parts of digestive tract; Z87.891 Personal history of nicotine dependence; Z79.899 Other long term (current) drug therapy; Z86.711 Personal history of pulmonary embolism; Z68.25 Body mass index [BMI] 25.0-25.9, adult
CPT/HCPCS: 36415; 70450; 71260; 74177; 74230; 80048; 80053; 80069; 81001; 82140; 82728; 83540; 83550; 83605; 83735; 83880; 84132; 84145; 85025; 85027; 86769; 87040; 87077; 87086; 87186; 92526; 92611; 93005; 93010; 93971; 94760; 96365; 96372; 96376; 97110; 97162; 97530; 99285-25; A9270; C9113; G0378; J0696; J1650; J2405; J3480; J7030; P9046; P9612; Q9967; U0004

== ENCOUNTER → 2021-05-16 | Outpatient (CLI) | payer MEDICARE, OTHER ==
[~2021-05-16] MED LIST changes: +ACET325 PO; +AMLO10 PO; +Aspir 8181 MG PO; +BISA10S PR; +DOCUZEN 8.6-501 EACH PO; +MECL25 PO; +OLAN5 PO; +PENVK500 PO; +RECTICARE30 GM TOP; +VITAMIN D31000 UNI1 PO; +[UNRECOGNIZED DRUG - OTHER] BOTHEYES
[2021-05-16 10:17] LABS: Anion Gap 5 mmol/L (6-16); Blood Urea Nitrogen 12 mg/dL (8-24); Bun/Creatinine Ratio 18.8 (12.0-20.0); CO2, Blood 30 mmol/L (21-32); Calcium, Blood 9.1 mg/dL (8.5-10.1); Chloride, Blood 109 mmol/L (98-108); Creatinine, Blood 0.64 mg/dL (0.40-1.00); Glomerular Filtration Rate >60 (60-); Glucose, Blood 64 mg/dL (70-99); Magnesium, Blood 1.9 mg/dL (1.6-2.4); Potassium, Blood 3.7 mmol/L (3.5-5.5); Sodium, Blood 144 mmol/L (136-145)
== END | disposition home or self-care (01) ==
LOC: LAB UVN 08:36 → EDSTATUS 10:52
PROVIDERS: Internal Medicine
DX: Z51.81 Encounter for therapeutic drug level monitoring (principal); Z79.899 Other long term (current) drug therapy
CPT/HCPCS: 80048; 83735

== ENCOUNTER → 2021-05-22 | Outpatient (CLI) | payer MEDICARE, OTHER ==
[2021-05-22 09:31] LABS: Hematocrit 31.5 % (33.0-51.0); Hemoglobin 9.7 g/dL (11.5-16.0); Mean Corpuscular HGB Conc 30.8 g/dL (31.5-36.5); Mean Corpuscular Volume 85 fL (80-100); Platelet Count 492 K/mm3 (150-400); RDW Coefficient Variation 18.6 % (11.7-14.2); RDW Standard Deviation 57.3 fL (35.1-46.3); Red Blood Cell Count 3.73 M/mm3 (3.80-5.20); White Blood Cell Count 8.82 K/mm3 (4.00-11.30)
[2021-05-22 09:58] LABS: Anion Gap 7 mmol/L (6-16); Blood Urea Nitrogen 15 mg/dL (8-24); Bun/Creatinine Ratio 21.7 (12.0-20.0); CO2, Blood 25 mmol/L (21-32); Calcium, Blood 8.7 mg/dL (8.5-10.1); Chloride, Blood 106 mmol/L (98-108); Creatinine, Blood 0.69 mg/dL (0.40-1.00); Glomerular Filtration Rate >60 (60-); Glucose, Blood 75 mg/dL (70-99); Potassium, Blood 3.7 mmol/L (3.5-5.5); Sodium, Blood 138 mmol/L (136-145)
[2021-05-22 12:05] LABS: Appearance, Urine Clear (Clear); Bilirubin, Urine Neg (Neg); Blood, Urine Neg (Neg); Color, Urine Yellow (P-Yellow); Glucose Qualitative, Urine Neg (Neg); Ketones, Urine Neg (Neg); Leukocyte Esterase, Urine 1+ (Neg); Nitrite, Urine Neg (Neg); Protein, Urine 1+ (Neg); Specific Gravity, Urine 1.015 (1.003-1.022); Urobilinogen, Urine NORM (Normal)
[2021-05-22 12:49] LABS: Bacteria Few /hpf; Red Blood Cells, Urine 0-2 /hpf (0-2); Squamous Epithelial Cells Rare /hpf (Few); White Blood Cells, Urine 0-2 /hpf (0-5)
== END | disposition home or self-care (01) ==
LOC: LAB UVN 08:10 → EDSTATUS 10:54
PROVIDERS: Internal Medicine
DX: I10 Essential (primary) hypertension (principal); N39.0 Urinary tract infection, site not specified
CPT/HCPCS: 80048; 81001; 85027; 87086

== ENCOUNTER 2021-05-26 18:01 | Emergency (ER) | payer MEDICARE, OTHER ==
[~2021-05-26] VITALS: Ht 157.5 cm; Wt 74.4 kg
[~2021-05-26 18:01] MED LIST changes: -RECTICARE30 GM TOP
[2021-05-26] MEDS ORDERED: DOCU100 PO (19:50)
[2021-05-26] MEDS ORDERED: RECTICARE30 GM TOP (19:50)
[2021-05-26 20:21] LABS: Source, Urine Catheter
[2021-05-26 20:25] LABS: Appearance, Urine Clear (Clear); Bilirubin, Urine Neg (Neg); Blood, Urine Neg (Neg); Color, Urine Yellow (P-Yellow); Glucose Qualitative, Urine Neg (Neg); Ketones, Urine 1+ (Neg); Leukocyte Esterase, Urine 1+ (Neg); Nitrite, Urine Neg (Neg); Protein, Urine 1+ (Neg); Specific Gravity, Urine 1.015 (1.003-1.022); Urobilinogen, Urine 1+ (Normal)
[2021-05-26 20:35] LABS: Bacteria Few /hpf; Red Blood Cells, Urine 0-2 /hpf (0-2)
[2021-05-26 20:36] LABS: Squamous Epithelial Cells Mod /hpf (Few)
== END 2021-05-26 21:42 | disposition home or self-care (01) ==
LOC: ER 18:01
PROVIDERS: Student in an Organized Health Care Education/Training Program
DX: K64.4 Residual hemorrhoidal skin tags (principal)
CPT/HCPCS: 51701; 81001; 87086; 99283

== ENCOUNTER → 2021-05-30 | Outpatient (CLI) | payer MEDICARE, OTHER ==
[~2021-05-30] MED LIST changes: +RECTICARE30 GM TOP
[2021-05-30 17:03] LABS: Appearance, Urine Turbid (Clear); Bilirubin, Urine Neg (Neg); Blood, Urine 2+ (Neg); Color, Urine Amber (P-Yellow); Glucose Qualitative, Urine Neg (Neg); Ketones, Urine 1+ (Neg); Leukocyte Esterase, Urine 3+ (Neg); Nitrite, Urine Pos (Neg); Protein, Urine 3+ (Neg); Urobilinogen, Urine 1+ (Normal)
[2021-05-30 17:16] LABS: Amorphous Mod (0-Heavy); Bacteria Many /hpf; Squamous Epithelial Cells Few /hpf (Few); Triple Phosphate Crystals Few /hpf
== END ==
LOC: EDSTATUS 13:57 → LAB UVN 15:48 → LAB 15:48
PROVIDERS: Internal Medicine
DX: N39.0 Urinary tract infection, site not specified (principal); Z88.2 Allergy status to sulfonamides; Z88.8 Allergy status to other drugs, medicaments and biological substances; Z88.5 Allergy status to narcotic agent; Z88.1 Allergy status to other antibiotic agents; Z91.048 Other nonmedicinal substance allergy status
CPT/HCPCS: 81001; 87086